=== PATIENT | female | born 1980 | race Hispanic/Latino ===

== ENCOUNTER 2017-05-22 20:19 | Emergency (ER) | payer SELFPAY ==
[~2017-05-22 20:19] MED LIST: ISOVUE-370 76%-LOCM 1 ML ONE
[2017-05-22 20:40] LABS: #Eosinphils 0.2 thou/uL (0.0-0.7); #Lymphocytes 4.1 thou/uL (1.20-3.40); #Monocytes 0.5 thou/uL (0.11-0.59); #Neutrophils 6.4 thou/uL (1.40-6.50); %Basophils 0.4 % (0.0-1.0); %Eosinophils 1.9 % (0.0-10.0); %Lymphocytes 36.2 % (21.0-51.0); %Monocytes 4.8 % (0.0-10.0); Hematocrit 41.3 % (36.0-47.0); Mean Platelet Volume 9.7 fL (7.4-10.4); Red Blood Cell (RBC) Count 5.37 mill/uL (4.20-5.40); White Blood Cell (WBC) Count 11.2 thou/uL (4.8-10.8)
[2017-05-22 21:08] LABS: ALT (SGPT) 30 U/L (8-55); AST (SGOT) 14 U/L (5-34); Alkaline Phosphatase 100 U/L (40-150); Anion Gap 12 mmol/L (10-20); BUN (Urea Nitrogen) 6 mg/dL (7.0-18.7); Bilirubin, Total 0.4 mg/dL (0.2-1.2); Calc. Creatinine Clearance 0 mL/min (70-130); Calcium 9.3 mg/dL (7.8-10.44); Carbon Dioxide 26 mmol/L (22-29); Chloride 100 mmol/L (98-107); Estimated GFR-MDRD 82; Globulin 4.6 g/dL (2.4-3.5); Lipase 12 U/L (8-78); Protein, Total 8.6 g/dL (6.0-8.3)
[2017-05-22] MEDS ORDERED: Ketorolac Tromethamine 30 MG/ML VIAL ONE (21:16)
[2017-05-22] MEDS ORDERED: Lidocaine Viscous Sol 2% 15 ml UD Cup ONE (21:16)
[2017-05-22] MEDS ORDERED: Mag-Al 1200 mg/1200 mg/30 ML UDCUP ONE (21:16)
[2017-05-22 21:40] LABS: Troponin I Less than 0.010 ng/mL (< 0.028)
--- NOTE | 2017-05-22 21:46 | RAD ---
PA AND LATERAL VIEWS OF THE CHEST: 05/22/17 HISTORY: Chest pain. FINDINGS: Comparison made with exam of 11/10/16. The heart size is normal. There is mild stable elevation of the right hemidiaphragm. No focal areas of consolidation, pneumothorax or pleural effusions are seen. IMPRESSION: Stable exam. No acute process. POS: [facility]
[2017-05-22 22:46] LABS: Bilirubin Negative (Negative); Blood, Urine Negative (Negative); Glucose, Urine (Dipstick) 500 mg/dL (Negative); Ketone, Urine Negative (Negative); Nitrite Positive (Negative); Protein, Urine (Dipstick) Negative (Neg-Trace); Urobilinogen 0.2 mg/dL (0.2-1.0)
[2017-05-22 22:49] LABS: Bacteria/HPF 4+ HPF (None Seen); Hyaline Casts/LPF 0-3 HYALINE CAST LPF (0-3 Hyaline); Squamous Epithelial None Seen HPF (0-3); WBC/HPF 21-50 HPF (0-3)
--- NOTE | 2017-05-23 00:36 | CT ---
CT PULMONARY ANGIOGRAM WITH IV CONTRAST AND 3D POSTPROCESSIN05/22/17 HISTORY: Chest pain. FINDINGS: No filling defects are seen in the contrast opacified pulmonary arterial vasculature. The thoracic a jesusita is well opacified without aneurysmal dissection. No pleural or pericardial effusions are identi fied. No pneumothoraces, focal areas of consolidation, or lung bases are seen. The large right adren al fat containing mass likely a myelolipoma noted on the CT scan of 03/30/15 is incompletely visualiz ed on the current study. IMPRESSION: No CT evidence of pulmonary embolism or thoracic aortic aneurysm/dissection. POS: [facility]
== END 2017-05-23 00:46 | disposition home or self-care (01) ==
LOC: ERS 20:19
DX: N39.0 Urinary tract infection, site not specified (principal); R10.13 Epigastric pain; E11.9 Type 2 diabetes mellitus without complications; I10 Essential (primary) hypertension; F32.9 Major depressive disorder, single episode, unspecified
CPT/HCPCS: 36415; 71020; 71275; 80053; 81003; 81015; 81025; 82553; 83690; 84484; 85025; 85379; 96374; J1885

== ENCOUNTER 2018-02-21 02:04 | Emergency (ER) | payer BC ==
[2018-02-21 02:36] LABS: #Basophils 0.1 thou/uL (0.0-0.2); #Eosinphils 0.3 thou/uL (0.0-0.7); #Monocytes 0.5 thou/uL (0.11-0.59); #Neutrophils 5.2 thou/uL (1.40-6.50); %Basophils 1.2 % (0.0-1.0); %Eosinophils 3.2 % (0.0-10.0); %Lymphocytes 33.5 % (21.0-51.0); %Monocytes 5.1 % (0.0-10.0); Hemoglobin 13.3 g/dL (12.0-16.0); Mean Corpuscular HGB CONC 31.5 g/dL (32.0-36.0); Mean Corpuscular Hemoglobin 24.1 pg (27.0-31.0); Mean Corpuscular Volume 76.4 fL (78.0-98.0); Mean Platelet Volume 10.2 fL (7.4-10.4); Platelet Count 264 thou/uL (130-400); RBC Distribution Width 16.6 % (11.5-14.5); Red Blood Cell (RBC) Count 5.51 mill/uL (4.20-5.40); White Blood Cell (WBC) Count 9.1 thou/uL (4.8-10.8)
[2018-02-21 02:58] LABS: ALT (SGPT) 15 U/L (8-55); AST (SGOT) 13 U/L (5-34); Alkaline Phosphatase 83 U/L (40-150); Anion Gap 13 mmol/L (10-20); BUN (Urea Nitrogen) 6 mg/dL (7.0-18.7); Bilirubin, Total 0.4 mg/dL (0.2-1.2); Calc. Creatinine Clearance 0 mL/min (70-130); Calcium 9.3 mg/dL (7.8-10.44); Carbon Dioxide 26 mmol/L (22-29); Chloride 104 mmol/L (98-107); Estimated GFR-MDRD 88; Globulin 3.8 g/dL (2.4-3.5); Glucose 136 mg/dL (70-105); Potassium 4.1 mmol/L (3.5-5.1); Protein, Total 7.8 g/dL (6.0-8.3); Sodium 139 mmol/L (136-145)
[2018-02-21 04:59] LABS: Bilirubin Negative (Negative); Blood, Urine Negative (Negative); Clarity CLOUDY (Clear); Glucose, Urine (Dipstick) Negative (Negative); Leukocyte Large (Negative); Nitrite Positive (Negative); Protein, Urine (Dipstick) Negative (Neg-Trace); Specific Gravity, Urine 1.005 (1.002-1.036); Urobilinogen 0.2 mg/dL (0.2-1.0); pH, Urine 6.5 (5.0-9.0)
[2018-02-21 05:01] LABS: Pathc Cast-AUWi Flag 0.43 (0-2.49)
[2018-02-21 05:08] LABS: Pregnancy Test - Urine (BHCG) Negative (Negative); Pregu Control Background? CLEAR/WHITE (CLR/WHITE); Pregu Control Bar Appear? YES (CONTROL BAR); Specific Gravity 1.005 (1.002-1.036)
[2018-02-21 05:26] LABS: RBC/HPF 0-3 HPF (0-3)
[2018-02-21 05:27] LABS: Renal Epithelial 0-3 HPF (0-3); Squamous Epithelial 0-3 HPF (0-3); Transitional Epithelial 0-3 HPF (0-3)
[2018-02-21 05:28] LABS: Bacteria/HPF 4+ HPF (None Seen); Hyaline Casts/LPF NONE SEEN LPF (0-3 Hyaline); Oval Fat Bodies/HPF None Seen HPF (None Seen); Trichomonas/HPF 1+ HPF (None Seen); Yeast-All Forms None Seen HPF (None Seen)
[2018-02-21] MEDS ORDERED: Ketorolac Tromethamine 30 MG/ML VIAL ONE (06:01)
--- NOTE | 2018-02-21 11:03 | CT ---
PRELIMINARY REPORT/[facility]/EMERGENTY AFTER-HOURS PROCEDURE Addendum created by Adonis Rojas MD on 02/21/2018 7:50 AM Central Time ([place]) Findings were dis cussed with PAULINE RICHARDSON at 02/21/2018 7:49 AM CDT. Initial Report created on 02/21/2018 7:37 AM Central Time ([place] & [place]) CT Abdomen and Pelvis Without Intravenous Contrast EXAM DATE/TIME: Exam ordered 02/21/2018 6:12 AM CLINICAL HISTORY: 37 years old, female; Pain; Abdominal pain; Flank; Other: Bilateral upper flank pain; Patient HX: [email or web address] presents to the ed w C/O bilateral flank pain onset of 1 week ago. Pt. Reports that she had a cyst o n her right kidney in 2014 after having been suspected of kidney stones. Mass found between r kidney and liver-2014(no follow up). Pt. Was seen by dr. Hansen and was given hydrocodone and muscle relaxe rs for the pain. Pt. Reports that neither have helped. Pt. Denies any falls or traumas. TECHNIQUE: Axial computed tomography images of the abdomen and pelvis without intravenous contrast. Coronal reformatted images were created and reviewed. COMPARISON: CT Abdomen Pelvis W WO con 2015-03-30 09:09 FINDINGS: Lung bases: The visualized portions of the lung bases are normal. ABDOMEN: Liver: There are no focal liver lesions identified. Gallbladder and bile ducts: The gallbladder is normal. There is no evidence of biliary ductal dilatio n. No calcified stones. Pancreas: The pancreas appears normal. No ductal dilation. Spleen: The spleen is normal. Adrenals: Normal. No mass. Kidneys and ureters: There is a 10 x 13 x 12 cm fat and soft tissue density mass extending from the u pper pole of the RIGHT kidney consistent with an angiomyolipoma, increased in size from prior. The le ft kidney is normal. No obstructing stones. No hydronephrosis. Stomach and bowel: The stomach is normal. The colon is normal. No obstruction. No mucosal thickening. PELVIS: Appendix: A normal appendix is identified. Bladder: The bladder is normal. No stones. Reproductive: The uterus is normal. ABDOMEN and PELVIS: Intraperitoneal space: Normal. No free air. No significant fluid collection. Bones/joints: No acute fracture. No dislocation. Soft tissues: Normal. Vasculature: Normal. No abdominal aortic aneurysm. Lymph nodes: Normal. No enlarged lymph nodes. 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 Thank you for allowing us to participate in the care of your patient. Dictated and Authenticated by: Adonis Rojas MD 02/21/2018 7:37 AM Central Time ([place]) FINAL REPORT CT ABDOMEN AND PELVIS WITHOUT CONTRAST STONE PROTOCOL: Date: 02/21/18 HISTORY: Right-sided flank pain. COMPARISON: CT from 2014. FINDINGS/IMPRESSION: Findings and impression are concordant with the preliminary report by Gloria. There is mild interval size increase of the right adrenal myelolipoma. No evidence of acute hemorrhag e. Given the size of the myelolipoma, surgical consultation is advised. POS: [facility]
== END 2018-02-21 08:21 | disposition home or self-care (01) ==
LOC: ERS 02:04
DX: D17.71 Benign lipomatous neoplasm of kidney (principal); N39.0 Urinary tract infection, site not specified; I10 Essential (primary) hypertension; E11.9 Type 2 diabetes mellitus without complications; F32.9 Major depressive disorder, single episode, unspecified
CPT/HCPCS: 36415; 74176; 80053; 81003; 81015; 81025; 83690; 85025; 87040; 87077; 87086; 87186; 96361; 96365; 96375; J0744; J1885

== ENCOUNTER 2018-03-03 16:07 | Emergency (ER) | payer BC ==
[2018-03-03 16:47] LABS: #Eosinphils 0.1 thou/uL (0.0-0.7); #Lymphocytes 2.4 thou/uL (1.20-3.40); #Monocytes 0.5 thou/uL (0.11-0.59); #Neutrophils 7.3 thou/uL (1.40-6.50); %Basophils 0.2 % (0.0-1.0); %Eosinophils 1.4 % (0.0-10.0); %Lymphocytes 23.1 % (21.0-51.0); %Monocytes 5.1 % (0.0-10.0); %Neutrophils 70.3 % (42.0-75.0); Hemoglobin 13.5 g/dL (12.0-16.0); Mean Corpuscular HGB CONC 33.4 g/dL (32.0-36.0); Mean Corpuscular Hemoglobin 25.1 pg (27.0-31.0); Mean Corpuscular Volume 75.2 fL (78.0-98.0); Mean Platelet Volume 9.8 fL (7.4-10.4); Platelet Count 254 thou/uL (130-400); RBC Distribution Width 16.7 % (11.5-14.5); Red Blood Cell (RBC) Count 5.38 mill/uL (4.20-5.40); White Blood Cell (WBC) Count 10.4 thou/uL (4.8-10.8)
[2018-03-03 17:13] LABS: ALT (SGPT) 20 U/L (8-55); AST (SGOT) 49 U/L (5-34); Albumin 4.1 g/dL (3.5-5.0); Alkaline Phosphatase 107 U/L (40-150); Anion Gap 14 mmol/L (10-20); BUN (Urea Nitrogen) 11 mg/dL (7.0-18.7); Bilirubin, Total 0.5 mg/dL (0.2-1.2); Calc. Creatinine Clearance 0 mL/min (70-130); Carbon Dioxide 25 mmol/L (22-29); Chloride 103 mmol/L (98-107); Estimated GFR-MDRD 80; Glucose 181 mg/dL (70-105); Lipase 22 U/L (8-78); Potassium 3.6 mmol/L (3.5-5.1); Protein, Total 8.1 g/dL (6.0-8.3); Sodium 138 mmol/L (136-145)
[2018-03-03 17:45] LABS: CKMB 0.6 ng/mL (0-6.6); Troponin I Less than 0.010 ng/mL (< 0.028)
--- NOTE | 2018-03-03 18:07 | RAD ---
PORTABLE CHEST 1 VIEW: Date: 03/03/18 Time: 1702 hours HISTORY: Chest pain. FINDINGS: Comparison made with exam of 05/22/17. The heart size is normal. There is continued elevation of the right hemidiaphragm. No lobar consolida tion, pneumothoraces, or pleural effusions are seen. The lungs are well expanded. IMPRESSION: No acute process. POS: [facility]
--- NOTE | 2018-03-03 19:46 | ULT ---
RIGHT UPPER QUADRANT ULTRASOUND: HISTORY: Abdominal pain. FINDINGS: The liver demonstrates fairly homogeneous echotexture without focal mass or intrahepatic ductal dilat ation. No gallstones, gallbladder wall thickening, or pericholecystic fluid is seen. The common shyanne t measures 4 mm in diameter. The pancreas is not satisfactorily visualized. No free fluid is seen. No right-sided hydronephrosis is noted. The right adrenal myelolipoma is better visualized and veronique acterized on the CT scan of 02/21/2018. IMPRESSION: No evidence of cholelithiasis. POS: [facility]
== END 2018-03-03 19:17 | disposition home or self-care (01) ==
LOC: ERS 16:07
DX: R10.13 Epigastric pain (principal); E11.9 Type 2 diabetes mellitus without complications; I10 Essential (primary) hypertension; Z79.4 Long term (current) use of insulin
CPT/HCPCS: 71045; 76705; 80053; 82550; 82553; 83690; 83880; 84484; 85025; 93005

== ENCOUNTER 2018-03-06 11:23 | Outpatient (CLI) | payer BC ==
[2018-03-06] MEDS ORDERED: ISOVUE-370 76%-LOCM 1 ML ONE (11:28)
== END 2018-03-06 11:24 | disposition home or self-care (01) ==
LOC: BICCT 11:23
PROVIDERS: ATTEND Urology
DX: D35.00 Benign neoplasm of unspecified adrenal gland (principal)
CPT/HCPCS: 74175

== ENCOUNTER 2018-04-14 13:00 | Inpatient (IN) | payer BC ==
[2018-04-14 13:38] VITALS: BMI 44.9
[2018-04-22] MEDS ORDERED: CEFAZOLIN/Water 2 GM/20 ML SYRINGE ONE (06:48)
[2018-04-22] MEDS ORDERED: Midazolam HCl 2 mg/2 ml Vial ONE (06:51)
[2018-04-22] MEDS ORDERED: Fentanyl 100 MCG/2 ML VIAL ONE ×4 (07:08→12:13)
[2018-04-22] MEDS ORDERED: Fentanyl 250 MCG/5 ML VIAL ONE ×2 (07:25→09:24)
[2018-04-22] MEDS ORDERED: Bupivacaine 0.25% HCL 30 ML VIAL ONE ×2 (09:24→11:24)
[2018-04-22] MEDS ORDERED: Bupivacaine 0.25% 10 ML VIAL EPIDURAL PRN (10:00)
[2018-04-22] MEDS ORDERED: Promethazine HCl 25 MG SUPP PR PRN (10:00)
[2018-04-22] MEDS ORDERED: Naloxone HCl 0.4 mg/ml Vial IVP PRN (10:00)
[2018-04-22] MEDS ORDERED: diphenhydrAMINE 50 MG/ML VIAL IM PRN (10:00)
[2018-04-22] MEDS ORDERED: diphenhydrAMINE 50 MG/ML VIAL IVP PRN (10:00)
[2018-04-22] MEDS ORDERED: Ondansetron HCl/PF 4 MG/2 ML Vial IVP PRN ×3 (10:00→13:58)
[2018-04-22] MEDS ORDERED: HYDROcodone/Acetaminophen 5/325 mg Tablet PO PRN ×2 (10:00)
[2018-04-22] MEDS ORDERED: diphenhydrAMINE 25 MG CAP PO PRN ×3 (10:00→13:58)
[2018-04-22] MEDS ORDERED: traMADol HCl 50 MG TAB PO PRN ×2 (10:00)
[2018-04-22] MEDS ORDERED: Hydrocerin (Eucerin) Cream 120 gm Jar TOP PRN (10:00)
[2018-04-22] MEDS ORDERED: Naloxone HCl 0.4 mg/ml Vial IV PRN ×2 (10:00→13:58)
[2018-04-22] MEDS ORDERED: Zolpidem Tartrate 5 MG TAB PO PRN ×3 (10:00→13:58)
[2018-04-22] MEDS ORDERED: fentaNYL Citrate/PF 1,250 MCG, Bupivacaine 25 ML in Sodium Chloride 0.9% 250 ML 200 ML EPIDURAL SCH (10:00)
[2018-04-22] MEDS ORDERED: Promethazine HCl 25 MG/ML VIAL IM PRN ×3 (10:00→13:58)
[2018-04-22] MEDS ORDERED: Promethazine HCl 12.5 MG SUPP PR PRN (10:58)
[2018-04-22] MEDS ORDERED: Docusate 100 MG CAP PO PRN (10:58)
[2018-04-22] MEDS ORDERED: Metoclopramide HCl 10 MG/2 ML VIAL IVP PRN (11:03)
[2018-04-22] MEDS ORDERED: Dextrose 50% Abboject 50 ML SYRINGE SLOW IVP PRN ×2 (11:05→11:28)
[2018-04-22] MEDS ORDERED: Dextrose 5% in Water 1,000 ML IV PRN (11:05)
[2018-04-22] MEDS ORDERED: Insulin Regular 300 UNITS/3 ML VIAL SC PRN (11:05)
[2018-04-22 12:41] LABS: Potassium 4.1 mmol/L (3.5-5.1)
--- NOTE | 2018-04-22 13:27 | OP ---
DATE OF PROCEDURE: 04/22/2018 PREOPERATIVE DIAGNOSIS: Right adrenal mass. POSTOPERATIVE DIAGNOSIS: Right adrenal mass. PROCEDURE: Right adrenalectomy. SURGEON: Shell Faulkner MD INSPECTOR [employer] BOARDS: Maci Tucker D.O. ANESTHESIA: General with endotracheal tube and epidural. COMPLICATIONS: None. BLOOD LOSS: 550. CRYSTALLOID: 1200. URINE OUTPUT: 250. SPECIMENS: Right adrenal mass. DRAINS REMAINING: Borrego. INDICATIONS: The patient is a 37-year-old female, who was seen in the office for a 13 cm adrenal mass that had been noted on imaging 3 years prior; however, she had not been referred to Urology until being seen in the ER for some generalized pain, and a CT scan noticed the adrenal tumor is now enlarged and was referred to me. Since this has been such longstanding that her hypertension was relatively new with no concerns for hypokalemia. I was not concerned for aldosterone nor a pheochromocytoma that could have been a component of a cortisol functioning. So, this was sent off, but clearly the mass needed to be removed either way, and so we planned for this. Embolization was discussed with the cardiovascular surgeon, but he felt it was not amenable to this, as there was no definitive blood supply noted after CT angiogram for this, so we proceeded. The patient was brought into the room by Anesthesia, laid on the table in supine position. After receiving general anesthetic, she was positioned with pads and all pressure points and the bed was flexed slightly for better exposure , and then she was secured. A Borrego catheter had been placed. An art line was attempted by Anesthesia, but ultimately unsuccessful, so she had 2 regular IVs and then she was prepped and draped in sterile fashion. A Chevron incision carrying it far on the right and only approximately 4-5 cm across midline was then made and taken down to the fascia. The fascia was opened and the rectus muscle transected on the right completely and only a portion on the patient's left. Then, the exterior oblique and internal oblique muscle and fascia were incised and then peritoneum was recognized and opened. Of note, the falciform ligament had been taken with the LigaSure to ensure hemostasis. Then, carefully, the incision was taken all the way to its lateral borders with electrocautery. The Bookwalter was set up for retraction. Attention was turned to the colon where it was released laterally at the line of Toldt and brought over medially. Any hepatic attachments were also released and so then the colon and a portion of the liver were packed away. Attention was then turned to the duodenum where this was kocherized. Care was taken near the IVC when doing this dissection with cautery. The IVC and renal vein were then identified and the renal vein was heading down toward the renal hilum. The superior portion of the kidney and that border between the tumor was identified and carefully dissected. The majority of the resection occurred using right angle and electrocautery other than blunt dissection. A plane was carefully taken down to separate the superior kidney from the adrenal gland going more medially ensuring there were no attachments to the renal vein from a blood supply standpoint, then returning to the IVC. This was dissected carefully away from the tumor itself until a portion that appeared to be the definitive adrenal vein from the IVC was identified. This was cleared off and dissected such that the right angle could go under it, and a 2-0 silk was placed on the IVC side and another was placed on the tumor side; however, there was not enough length of the vein in order to tie the tumor side. So, the IVC side was tied down and then another clip was used on this side before transecting the tumor away from the IVC. There was some bleeding noted from the tumor site at this point, so a 4-0 Prolene was used in [id number] fashion, which successfully achieved hemostasis. Then, attention was turned to the lateral portion of the tumor where it was freed from the abdominal wall, and posteriorly going up towards the liver where we wanted to keep the peritoneum reflected upward onto the liver. This plane was followed and any attachments were then taken down with the right angle and electrocautery. As we got more medial there was one area that was taken down with the LigaSure to ensure hemostasis, but there was never any further definitive vein or artery encountered on the tumor itself. At this point, blunt dissection of the lateral and posterior portion was performed and any attachments remaining were taken away with electrocautery. Attention was turned back to the area of the IVC where the adrenal vein had been and there were still some attachments in this area. With the right angle and electrocautery these planes were further delineated. They were only a few smaller attachments in the superior-posterior area that were taken down with the cautery carefully. At this point, the tumor was free and delivered for specimen. Once the tumor was out, the surgery bed was irrigated with copious amounts of fluid and then inspected for hemostasis. FloSeal was placed on the adrenal vein stump at the IVC and then SurgiSeal was placed at the bed of resection superiorly. This was just for further reassurance since there was no oozing noted. Attention was turned back to the area of the renal vein and its attachment from the IVC, and there was no concern for any oozing there either. So, at this point, the colon was pushed back over into its anatomic position and the Bookwalter and retractors were all removed. Counts were correct for laps and needles. The posterior layer of the external/internal fascia was then closed with #1 PDS in running fashion. Then the anterior faschia of the rectus muscle belly itself was closed with a second #1 PDS in running fashion. The skin was inspected for hemostasis. Then powder was placed in the wound to prevent seroma and hopefully infection. The dermis was reapproximated with 3-0 Vicryl in interrupted fashion and anila were used for the skin. Sterile dressing was applied and the patient was then awakened and transferred to PACU in stable condition. JOSÉ
[2018-04-22] MEDS ORDERED: diphenhydrAMINE 50 MG/ML VIAL IM/IV PRN (13:58)
[2018-04-22] MEDS ORDERED: Metoclopramide HCl 10 MG/2 ML VIAL ONE (14:18)
[2018-04-22] MEDS ORDERED: Glycopyrrolate 0.2 MG/ML 5 ML SYRINGE ONE (14:18)
[2018-04-22] MEDS ORDERED: Ondansetron HCl/PF 4 MG/2 ML Vial ONE (14:18)
[2018-04-22] MEDS ORDERED: PROPOFOL 200 MG/20 ML VIAL ONE (14:18)
[2018-04-22 15:29] LABS: Hemoglobin 10.8 g/dL (12.0-16.0)
[2018-04-22 15:42] LABS: Potassium 4.2 mmol/L (3.5-5.1)
[2018-04-22] MEDS: Heparin 5,000 UNITS/ML VIAL SC SCH ×2 (16:27→22:25)
[2018-04-22] MEDS: Sodium Chloride 0.9% 1,000 ML IV SCH ×2 (16:33→22:07)
[2018-04-22] MEDS: CEFAZOLIN 2 GM in Sodium Chloride 0.9% 100 ML IVPB SCH (16:33)
[2018-04-22] MEDS: Acetaminophen 500 MG TAB PO SCH (18:03)
--- NOTE | 2018-04-22 18:23 | PRG ---
DATE OF SERVICE: 04/22/2018 SUBJECTIVE: The patient has done well other than pain control in the PACU area. Her epidural was not working, so it was switched out to another and the other seems to be working only on the left side as opposed to the right, so anesthesia has set her up with an epidural and [employer]. When I saw her, she is actually asleep--but easily aroused and denies anything other than pain. No nausea, but the pain is better than previous. PHYSICAL EXAMINATION: VITAL SIGNS: Her vitals have been stable. Her heart rate is around 100 with a blood pressure of systolic in the 120s. She is satting 100% on nasal cannula oxygen and her urine output has been approximately 200 yellow urine. HEART: Regular rhythm, borderline tachycardia. LUNGS: Clear to auscultation bilaterally. ABDOMEN: Soft, appropriately tender with dressing clean, dry and intact. LABORATORY DATA: H&H is 10.8 and 33.0, potassium is 4.2. ASSESSMENT AND PLAN: We have a 37-year-old female status post right adrenalectomy for 13 cm tumor with postop pain being handled by Anesthesia, but otherwise, doing well. [facility]ITAL[facility]ul[facility]
[2018-04-22] MEDS: Famotidine/PF 20 mg/2ml Vial SLOW IVP SCH (20:28)
[2018-04-23] MEDS: CEFAZOLIN 2 GM in Sodium Chloride 0.9% 100 ML IVPB SCH (00:38)
[2018-04-23] MEDS: Acetaminophen 500 MG TAB PO SCH ×4 (00:39→17:20)
[2018-04-23] MEDS: Sodium Chloride 0.9% 1,000 ML IV SCH ×4 (00:45→17:29)
[2018-04-23] MEDS: Bupivacaine 10 ML in Sodium Chloride 0.9% 90 ML EPIDURAL SCH ×2 (03:35→17:22)
[2018-04-23] MEDS: fentaNYL Citrate/PF 2,000 MCG in Sodium Chloride 0.9% 60 ML IV PRN ×2 (03:36→17:22)
[2018-04-23 04:51] LABS: #Monocytes 1.1 thou/uL (0.11-0.59); #Neutrophils 12.5 thou/uL (1.40-6.50); %Basophils 0.1 % (0.0-1.0); %Eosinophils 0.2 % (0.0-10.0); %Lymphocytes 12.9 % (21.0-51.0); %Monocytes 6.7 % (0.0-10.0); %Neutrophils 80.1 % (42.0-75.0); Hemoglobin 10.6 g/dL (12.0-16.0); Mean Corpuscular HGB CONC 31.6 g/dL (32.0-36.0); Mean Corpuscular Hemoglobin 24.6 pg (27.0-31.0); Mean Platelet Volume 9.5 fL (7.4-10.4); Platelet Count 265 thou/uL (130-400); RBC Distribution Width 14.1 % (11.5-14.5); Red Blood Cell (RBC) Count 4.28 mill/uL (4.20-5.40); White Blood Cell (WBC) Count 15.6 thou/uL (4.8-10.8)
[2018-04-23 05:01] LABS: Anion Gap 10 mmol/L (10-20); BUN (Urea Nitrogen) 7 mg/dL (7.0-18.7); Calc. Creatinine Clearance 209 mL/min (70-130); Calcium 7.8 mg/dL (7.8-10.44); Carbon Dioxide 21 mmol/L (22-29); Chloride 106 mmol/L (98-107); Estimated GFR-MDRD Greater than 90; Glucose 160 mg/dL (70-105); Potassium 4.2 mmol/L (3.5-5.1); Sodium 133 mmol/L (136-145)
[2018-04-23] MEDS: Heparin 5,000 UNITS/ML VIAL SC SCH ×3 (05:46→21:49)
--- NOTE | 2018-04-23 08:59 | PRG ---
DATE OF SERVICE: 04/23/2018 SUBJECTIVE: The patient did well overnight, actually slept some. Her pain is controlled. She has m inimal burping, some nausea this morning, but has not asked for nausea medication yet. We reviewed h ow she has this if she needs it. She has not gotten out of bed yet. OBJECTIVE: VITAL SIGNS: Her heart rate has been in the 90s-100s, she has been afebrile, blood pressure is stabl e currently 110/76, satting 94% on room air up to 98% previously. Her urine output has been 1150. HEART: Regular rhythm with borderline tachycardia. LUNGS: Clear to auscultation bilaterally. ABDOMEN: Soft, appropriately tender. Dressing was clean, dry and intact. Hypoactive bowel sounds n oted. EXTREMITIES: No lower extremity edema. LABORATORY DATA: Reveal H&H of 10.6 and 33.4, which is stable from 10.8 and 33.0. Her chemistries r eveal a slightly low sodium, but otherwise creatinine was 0.65 and her sugars have been from 119-160. ASSESSMENT AND PLAN: We have a 37-year-old female postoperative day #1 from a right adrenalectomy fo r a 13 cm mass, doing well. We will get the Borrego out and have her ambulate, increase her incentive spirometry. Continue just sips with meds only and monitor.
[2018-04-23] MEDS: Famotidine/PF 20 mg/2ml Vial SLOW IVP SCH ×2 (09:18→21:49)
[2018-04-23] MEDS ORDERED: CEFAZOLIN/Water 2 GM/20 ML SYRINGE SLOW IVP SCH (16:00)
[2018-04-24] MEDS: Acetaminophen 500 MG TAB PO SCH ×4 (00:07→17:59)
[2018-04-24] MEDS: Sodium Chloride 0.9% 1,000 ML IV SCH ×3 (02:06→18:03)
[2018-04-24] MEDS: Bupivacaine 10 ML in Sodium Chloride 0.9% 90 ML EPIDURAL SCH ×2 (06:00→18:43)
[2018-04-24] MEDS: Heparin 5,000 UNITS/ML VIAL SC SCH ×3 (07:18→21:05)
[2018-04-24] MEDS: Famotidine/PF 20 mg/2ml Vial SLOW IVP SCH ×2 (08:06→21:06)
--- NOTE | 2018-04-24 09:06 | PRG ---
DATE OF SERVICE: 04/24/2018 SUBJECTIVE: The patient did well over the last 24 hours after she is ambulating in small amounts and lying down more than up and has required oxygen from a low standpoint, she does not complain of any shortness of breath or coughing. Her nausea is improved. She has not passed gas. She has less burp ing. PHYSICAL EXAMINATION: VITAL SIGNS: She has been afebrile with a T-max of 98.9, her heart rate stayed around 100, blood pre ssure 129/86, satting 96% on 2 liters nasal cannula with 1875 out over the last 24 hours and she is v oiding this. HEART: Regular rhythm, borderline tachycardia. LUNGS: Clear to auscultation bilaterally. ABDOMEN: Soft, appropriately tender with hypoactive bowel sounds. The dressing was removed and the anila are clean, dry, and intact on the wound/ On incentive spirometer she could get up to 1500. LABORATORY DATA: No new labs. ASSESSMENT AND PLAN: We have a 37-year-old female postoperative day #2 from a right adrenalectomy do ing well except needing pulmonary toilet. I will get physical therapy to help with her ambulation. Continue n.p.o. except meds for now and await bowel function return.
[2018-04-24] MEDS: fentaNYL Citrate/PF 2,000 MCG in Sodium Chloride 0.9% 60 ML IV PRN (09:44)
[2018-04-25] MEDS: Acetaminophen 500 MG TAB PO SCH ×2 (00:04→05:58)
[2018-04-25] MEDS: Sodium Chloride 0.9% 1,000 ML IV SCH (02:44)
[2018-04-25] MEDS: Heparin 5,000 UNITS/ML VIAL SC SCH ×2 (05:58→14:07)
[2018-04-25] MEDS: Famotidine/PF 20 mg/2ml Vial SLOW IVP SCH (08:21)
[2018-04-25] MEDS: Bupivacaine 10 ML in Sodium Chloride 0.9% 90 ML EPIDURAL SCH (08:21)
[2018-04-25] MEDS ORDERED: Losartan 25 MG TAB PO SCH ×2 (09:00→09:45)
[2018-04-25] MEDS: fentaNYL Citrate/PF 2,000 MCG in Sodium Chloride 0.9% 60 ML IV PRN (09:30)
[2018-04-25] MEDS ORDERED: Morphine 4 MG/ML Carpuject SLOW IVP PRN (09:40)
[2018-04-25] MEDS ORDERED: Acetaminophen/Codeine 30-300mg Tablet PO PRN (09:41)
[2018-04-25] MEDS ORDERED: D5 1/2 NS w/10 mEq KCl 1,000 ML/1,000 ML BAG IV SCH (09:45)
--- NOTE | 2018-04-25 10:12 | PRG ---
DATE OF SERVICE: 04/25/2018 SUBJECTIVE: The patient did well overnight. Her pain is much improved. She walks better. She lear loraine how to get out of the bed from physical therapy without too much discomfort. Her breathing is im proved. She is feeling more rumbling in her abdomen, but has not passed any gas. She still has some burping and she has been urinating okay. OBJECTIVE: VITAL SIGNS: T-max 98.8, heart rate in the 90s-100s. Blood pressure is starting to elevate 152/99, satting 95% on room air, although she has nasal cannula on currently, so I am not sure whether this w as with 2 liters nasal cannula or not, despite it being listed as room air. She has had 2100, output for the last 24 hours. LUNGS: Clear to auscultation bilaterally. ABDOMEN: Soft, nondistended, appropriately tender at the incision with increasing bowel sounds abner red to the day prior. She was able to do a little over 1500 on the incentive spirometer. ASSESSMENT AND PLAN: We reviewed the anticipation of switching over from the epidural to oral medica tions and once she has passed gas then can have a clear liquid diet and advance as tolerated. If thi s happens today than there is a chance that she will be able to be discharged home. Otherwise, hopef ully in the next 24-48 hours, we will be able to progress once her bowel function returns.
[2018-04-25] MEDS: Acetaminophen/Codeine 30-300mg Tablet PO PRN ×2 (12:50→16:33)
[2018-04-25 15:40] VITALS: BP 144/88; TEMP 97.8
--- NOTE | 2018-04-28 11:30 | DIS ---
DATE OF ADMISSION: 04/22/2018 DATE OF DISCHARGE: 04/25/2018 ADMISSION DIAGNOSIS: Right adrenal mass. DISCHARGE DIAGNOSIS: Right adrenal mass, status post resection of a right 13-cm myolipoma. HOSPITAL COURSE: The patient did well throughout her stay. Her pain was originally controlled with epidural and IV pain medicines. After her bowel function returned, she was tolerating liquids, ambul ating, and pain controlled with oral medications. Her anila were removed and she was sent home wit [facility]. She will follow up in the office to check a postoperative recovery.
== END 2018-04-25 16:38 | disposition home or self-care (01) | DRG 615 ==
LOC: SURG A 04-22 05:47
PROVIDERS: ADMIT Urology; ATTEND Urology
PROC: 0GB30ZZ Excision of Right Adrenal Gland, Open Approach (ICD-10-PCS; principal; 2018-04-22)
DX: D35.01 Benign neoplasm of right adrenal gland (principal)
CPT/HCPCS: 36415; 36416; 80048; 82533; 84132; 85014; 85018; 85025; 88307; A4216; G8978-GP-CK; G8979-GP-CK; G8980-GP-CK; J0690; J1642; J1644; J1815; J2250; J2270; J2405; J2704; J2765; J3010; J3490; J7050; S0020; S0028

== ENCOUNTER 2018-04-15 11:45 | Outpatient (CLI) | payer BC ==
[2018-04-15 13:07] LABS: Hemoglobin 12.1 g/dL (12.0-16.0); Mean Corpuscular Hemoglobin 25.5 pg (27.0-31.0); Mean Corpuscular Volume 77.2 fL (78.0-98.0); Mean Platelet Volume 10.1 fL (7.4-10.4); Platelet Count 318 thou/uL (130-400); RBC Distribution Width 14.5 % (11.5-14.5); Red Blood Cell (RBC) Count 4.75 mill/uL (4.20-5.40); White Blood Cell (WBC) Count 9.9 thou/uL (4.8-10.8)
[2018-04-15 13:27] LABS: PTT 30.6 SEC (22.9-36.1); Prothrombin Time 13.7 SEC (12.0-14.7)
[2018-04-15 13:29] LABS: Anion Gap 12 mmol/L (10-20); BUN (Urea Nitrogen) 7 mg/dL (7.0-18.7); Calc. Creatinine Clearance 0 mL/min (70-130); Carbon Dioxide 26 mmol/L (22-29); Chloride 105 mmol/L (98-107); Estimated GFR-MDRD Greater than 90; Glucose 92 mg/dL (70-105); Sodium 139 mmol/L (136-145)
[2018-04-15 14:08] LABS: BHCG - Serum Negative (NEGATIVE); Pregs Control Background? CLEAR/WHITE (CLR/WHITE); Pregs Control Bar Appear? YES (CONTROL BAR)
== END 2018-04-15 11:46 | disposition home or self-care (01) ==
LOC: LABBT 11:45
PROVIDERS: ATTEND Urology
DX: Z01.812 Encounter for preprocedural laboratory examination (principal); D35.00 Benign neoplasm of unspecified adrenal gland; N39.0 Urinary tract infection, site not specified; R10.13 Epigastric pain
CPT/HCPCS: 80048; 84703; 85027; 85610; 85730; 86850; 86900; 86901

== ENCOUNTER 2018-05-23 11:25 | Inpatient (IN) | payer BC ==
[2018-05-23 12:01] LABS: #Basophils 0.1 thou/uL (0.0-0.2); #Eosinphils 0.1 thou/uL (0.0-0.7); #Lymphocytes 1.3 thou/uL (1.20-3.40); #Monocytes 0.6 thou/uL (0.11-0.59); #Neutrophils 12.5 thou/uL (1.40-6.50); %Basophils 0.6 % (0.0-1.0); %Eosinophils 0.5 % (0.0-10.0); %Monocytes 3.8 % (0.0-10.0); %Neutrophils 86.1 % (42.0-75.0); White Blood Cell (WBC) Count 14.5 thou/uL (4.8-10.8)
[2018-05-23] MEDS ORDERED: Ondansetron PF 4 MG/2 ML Vial ONE ×2 (12:07→14:57)
[2018-05-23 12:21] LABS: ALT (SGPT) 194 U/L (8-55); AST (SGOT) 275 U/L (5-34); Albumin 4.2 g/dL (3.5-5.0); Alkaline Phosphatase 223 U/L (40-150); Anion Gap 12 mmol/L (10-20); BUN (Urea Nitrogen) 11 mg/dL (7.0-18.7); Bilirubin, Total 3.3 mg/dL (0.2-1.2); Calc. Creatinine Clearance 0 mL/min (70-130); Calcium 9.3 mg/dL (7.8-10.44); Carbon Dioxide 25 mmol/L (22-29); Chloride 102 mmol/L (98-107); Estimated GFR-MDRD 72; Globulin 4.5 g/dL (2.4-3.5); Glucose 305 mg/dL (70-105); Potassium 4.3 mmol/L (3.5-5.1); Protein, Total 8.7 g/dL (6.0-8.3); Sodium 135 mmol/L (136-145)
[2018-05-23 12:29] LABS: Hypochromia SLIGHT = 6-15 cells (100X) (0-5/hpf); MDiff Complete? YES; Mean Corpuscular HGB CONC 30.3 g/dL (32.0-36.0); Mean Corpuscular Hemoglobin 22.6 pg (27.0-31.0); Mean Corpuscular Volume 74.5 fL (78.0-98.0); Mean Platelet Volume 9.9 fL (7.4-10.4); Microcytosis SLIGHT = 6-15 cells (100X) (0-5/hpf); PLT Morphology Comment Appears Adequate; Platelet Count 354 thou/uL (130-400); Polychromasia SLIGHT = 2-3 cells (100X) (0-2/hpf); RBC Distribution Width 14.1 % (11.5-14.5); Red Blood Cell (RBC) Count 5.31 mill/uL (4.20-5.40)
[2018-05-23 12:39] LABS: Lipase 7054 U/L (8-78)
[2018-05-23] MEDS ORDERED: Pantoprazole 40 MG VIAL ONE (12:41)
--- NOTE | 2018-05-23 14:06 | ULT ---
SONOGRAM RIGHT UPPER QUADRANT: Date: 05/23/18 HISTORY: Upper abdomen pain. FINDINGS: Shadowing stones are apparent at the gallbladder neck. There is no gallbladder wall thickening or per icholecystic fluid. Common duct is 0.7 cm. Liver is unremarkable without focal mass or intrahepatic b iliary dilatation. No free fluid. IMPRESSION: Cholelithiasis. No evidence of acute biliary obstruction. POS: [facility]
[2018-05-23 14:57] LABS: BHCG - Serum Negative (NEGATIVE); Pregs Control Background? CLEAR/WHITE (CLR/WHITE); Pregs Control Bar Appear? YES (CONTROL BAR)
--- NOTE | 2018-05-23 15:39 | CT ---
CT ABDOMEN AND PELVIS WITH CONTRAST: Date: 05/23/18 HISTORY: Abdominal pain. Recent mass removal. COMPARISON: CT stone protocol dated 02/21/18. FINDINGS: Evidence of recent right adrenal myelolipoma removal. There is mild increased fluid in the anterior p ararenal space surrounding the pancreas, which is a little bit greater than would be expected for suzy kenny 1 month prior. There is mild hyperenhancement of the mucosa of the gallbladder. No free fluid within the intraperitoneal space. No hydronephrosis. Aortoiliac contour is normal. Liver is unremarkable. Mild S-shaped scoliosis. IMPRESSION: 1. Inflammatory stranding around the pancreas, which is greater than would be expected for surgery 1 month prior. This could be sequelae of pancreatitis. 2. Small seroma from a prior right adrenal myelolipoma removal. 3. Mild hyperenhancement of the mucosa of the gallbladder could be sequelae of cholangitis. There is also mild hyperenhancement of the mucosa of the common bile duct, further supporting cholangitis. POS: [facility]
[2018-05-23] MEDS ORDERED: Levofloxacin 500 mg/D5W 100 ml Premix Bag ONE (16:18)
[2018-05-23] MEDS ORDERED: Dextrose 5% in Water 1,000 ML IV PRN (17:07)
[2018-05-23] MEDS ORDERED: Ondansetron PF 4 MG/2 ML Vial IVP PRN (17:07)
[2018-05-23] MEDS ORDERED: Dextrose 50% Abboject 50 ML SYRINGE SLOW IVP PRN (17:07)
[2018-05-23] MEDS ORDERED: hydrALAZINE 20 MG/ML VIAL SLOW IVP PRN (17:07)
[2018-05-23] MEDS ORDERED: Ondansetron ODT 4 MG TAB PO PRN (17:07)
[2018-05-23] MEDS ORDERED: HumaLOG 300 UNITS/3 ML VIAL SC PRN (17:07)
[2018-05-23] MEDS ORDERED: Acetaminophen 1,000 MG in Premix Bag 1 BAG IVPB PRN (17:10)
[2018-05-23] MEDS ORDERED: Lactated Ringer's 1,000 ML IV SCH (17:15)
[2018-05-23] MEDS: Sodium Chloride 0.9% 1,000 ML IV SCH (18:42)
[2018-05-23] MEDS ORDERED: Morphine 4 MG/ML VIAL SLOW IVP PRN (18:45)
[2018-05-23] MEDS: Ketorolac Tromethamine 30 MG/ML VIAL IVP PRN (18:50)
[2018-05-23] MEDS: Enoxaparin Sodium 40 MG/0.4 ML SYRINGE SC SCH (20:43)
[2018-05-23] MEDS ORDERED: Promethazine HCl 25 MG in Sodium Chloride 0.9% 50 ML IVPB PRN (22:48)
[2018-05-23 23:24] VITALS: BMI 45.3
[2018-05-24] MEDS: Sodium Chloride 0.9% 1,000 ML IV SCH ×6 (00:01→17:46)
[2018-05-24 05:09] LABS: #Basophils 0.1 thou/uL (0.0-0.2); #Eosinphils 0.2 thou/uL (0.0-0.7); #Monocytes 0.5 thou/uL (0.11-0.59); #Neutrophils 6.5 thou/uL (1.40-6.50); %Basophils 1.1 % (0.0-1.0); %Eosinophils 2.5 % (0.0-10.0); %Lymphocytes 21.2 % (21.0-51.0); %Monocytes 5.5 % (0.0-10.0); %Neutrophils 69.7 % (42.0-75.0); Hemoglobin 9.1 g/dL (12.0-16.0); Mean Corpuscular HGB CONC 31.2 g/dL (32.0-36.0); Mean Corpuscular Hemoglobin 23.1 pg (27.0-31.0); Mean Corpuscular Volume 74.1 fL (78.0-98.0); Mean Platelet Volume 9.7 fL (7.4-10.4); Platelet Count 254 thou/uL (130-400); Red Blood Cell (RBC) Count 3.93 mill/uL (4.20-5.40); White Blood Cell (WBC) Count 9.4 thou/uL (4.8-10.8)
[2018-05-24 05:36] LABS: ALT (SGPT) 110 U/L (8-55); AST (SGOT) 67 U/L (5-34); Alkaline Phosphatase 155 U/L (40-150); Anion Gap 7 mmol/L (10-20); BUN (Urea Nitrogen) 9 mg/dL (7.0-18.7); Bilirubin, Total 0.8 mg/dL (0.2-1.2); Calc. Creatinine Clearance 196 mL/min (70-130); Carbon Dioxide 23 mmol/L (22-29); Chloride 109 mmol/L (98-107); Estimated GFR-MDRD Greater than 90; Globulin 3.2 g/dL (2.4-3.5); Glucose 127 mg/dL (70-105); Potassium 3.6 mmol/L (3.5-5.1); Protein, Total 6.2 g/dL (6.0-8.3); Sodium 135 mmol/L (136-145)
[2018-05-24] MEDS: Pantoprazole 40 MG VIAL IVP SCH (08:20)
--- NOTE | 2018-05-24 10:51 | PRG ---
DATE OF SERVICE: 05/24/2018 SUBJECTIVE: The patient reports feeling much better today, much less pain. No nausea or vomiting. PHYSICAL EXAMINATION: VITAL SIGNS: On exam, her temperature is 98.3, pulse 97, blood pressure 123/84. GENERAL: She looks good. ABDOMEN: Soft. She has got a fresh subcostal scar right side, really minimal tenderness. LABORATORY DATA: Her white count is 9.4, H and H is 9 and 29, platelet count is 254. Her bilirubin went from 3.3-0.8. LFTs are all coming down. ASSESSMENT: Choledocholithiasis, probably passed a stone. PLAN: To begin clear liquids and when tolerating may discharge home for Dr. Estrada to do a laparosco pic cholecystectomy later.
--- NOTE | 2018-05-24 13:14 | HP ---
PRIMARY CARE PHYSICIAN: Jade Lisa ATTENDING PHYSICIAN: Dr. Estrada. REASON FOR CONSULTATION: Aid in medical management. HISTORY OF PRESENT ILLNESS: Ms. Platt is a pleasant 38-year-old female that has a history of hyper tension and diabetes mellitus. She was in her usual state of health until about 2 months ago when sh jina began having some pain in the epigastric region that would come and go and typically would be worse after eating. She would also have some nausea and vomiting associated with it as well, also worse a fter eating. She also had around the same time been found to have a adrenal tumor on the right kidne y. At that time, they were concerned that this could be precipitating some of her symptoms. Therefo re, it was recommended that she undergo the removal of the right adrenal tumor and see if her symptom s would improve. However, the adrenal gland was removed about a month ago and she says since then, h er symptoms have actually worsened. She continues to have epigastric pain, which is becoming longer and longer. She also noted some cold sweats, but no fevers. She also says it feels like the food is getting stuck when she tries to eat. She says the pain is extremely severe and as a result, she cam e to the emergency room. There was found, she has evidence of cholelithiasis as well as elevation of her LFTs and some inflammation around the pancreas as well and she is being admitted to the surgical service for evaluation and we have been consulted from the Hospitalist Service for medical managemen t. The patient currently says the pain is improved, but this is after being given morphine in the ER . She denies having any chest pain. She has had some shortness of breath, but this is usually with association with the pain. No PND, no orthopnea. She says she generally was walking prior to having her previous surgery. She was able to climb a flight of steps without any difficulty and has not farris d any previous problems with surgery in the past. She also denies any leg pain or any leg swelling. REVIEW OF SYSTEMS: All systems were reviewed and are negative except for that mentioned in the histo ry of present illness. PAST MEDICAL HISTORY: Significant for hypertension, diabetes, depression, right adrenal mass and obe sity. PAST SURGICAL HISTORY: She has had a tonsillectomy, surgery on her right arm due to her fracture whe n she was a kid, right adrenalectomy and 5 cysts removed from her right thumb. ALLERGIES: SHRIMP, LISINOPRIL and ROCEPHIN. SOCIAL HISTORY: She denies any smoking. She occasionally drinks. She is single, has 2 children. FAMILY HISTORY: Significant for diabetes and hypertension. MEDICATIONS: Include metformin 500 mg twice a day, losartan 25 mg daily, Toujeo 20 units at bedtime. PHYSICAL EXAMINATION: GENERAL: She is alert and oriented. She appears to be in no acute distress. She is well-developed and well-nourished, and she is obese. VITAL SIGNS: Blood pressure was 131/87, heart rate 90, respiratory rate is 16, temperature is 97.9. HEENT: Pupils are equal, round, and reactive. Extraocular muscles are intact. Her sclerae are anic teric. Throat: There is no erythema, no exudates. NECK: No adenopathy, no bruits, no jugular venous distention. LUNGS: Clear to auscultation. There was no wheezing, no rales, no rhonchi bilaterally. CARDIOVASCULAR: She had a normal S1 and S2. I did not appreciate an S3 or S4. No murmurs, no click s, no rubs. ABDOMEN: Obese, it is soft. There was some epigastric tenderness. There is no rebound, no guarding , however, no appreciable organomegaly. EXTREMITIES: There is no clubbing, cyanosis, no edema. No calf tenderness and no joint effusions in the lower extremities or crepitus. NEUROLOGIC: Muscle strength is 5/5 in both her upper and lower extremities and her cranial nerves ar e grossly intact. SKIN AND INTEGUMENT: There are no skin changes. No rash. She has got palpable dorsalis pedis pulse s. LABORATORY DATA: Lab results were reviewed. Sodium was 135, potassium 3.6, chloride is 109, CO2 is 23, BUN of 9, creatinine 0.67, glucose is 127, total bilirubin initially of 3.3. Her ALT is 110, AST is 67. White blood cell count initially was 14.5, currently is 9.4. Hemoglobin 9.1, hematocrit 29. 1, and platelet count was 254. ASSESSMENT AND PLAN: This is a pleasant 38-year-old female who presents to the emergency room with c omplaints of severe abdominal pain. She was found to have evidence of cholelithiasis on the CT scan of her abdomen as well as on the ultrasound as well as having some inflammatory changes around the pa ncreas and enhancement of the gallbladder. She also had a leukocytosis and elevated lipase as well a s transaminases. She therefore has an acute cholelithiasis as well as pancreatitis and possible evid ence of ascending cholangitis. This is being managed by the primary team, which is the general surgi shilpi team. It appears she is currently on IV antibiotics as well as bowel rest, IV fluids, and antiem etics for this. We have been asked to help manage diabetes and hypertension. 1. With regards to diabetes mellitus, she is currently n.p.o., we will therefore hold metformin and treat her with a sliding scale insulin. When she is able to tolerate p.o., she can then be transitio loraine back on her usual medications. 2. Hypertension, we will go ahead and hold losartan and treat her with IV hydralazine p.r.n., which is already been ordered and we will continue to follow along with you. 3. With regards to the gallstone pancreatitis, once again this is being managed by General Surgery a s well as and appears a consult has been placed for Gastroenterology as well. Agree with deep venous thrombosis and gastrointestinal prophylaxis and we will be happy to follow along with you.
--- NOTE | 2018-05-24 15:26 | CON ---
DATE OF CONSULTATION: 05/24/2018 GI INPATIENT CONSULTATION NOTE REQUESTING PHYSICIAN: Dr. Estrada. REASON FOR CONSULTATION: Gallstone pancreatitis. HISTORY OF PRESENT ILLNESS: Amaya Platt is a 38-year-old woman who was admitted to the hospital last night by Dr. Estrada. She has a history of diabetes and obesity. About a month ago, she underwe nt resection of a right-sided adrenal myolipoma. She had been having some stuttering abdominal pain preceding the surgery, but over the past few weeks since then has had continued episodic epigastric p ains. This is a tightness sensation in the epigastrium which will come and go for a few days at a ti me. Yesterday, the pain got quite severe and escalated with nausea and vomiting and she presented to the emergency department. CT imaging demonstrated some inflammatory stranding around the pancreas w hich is mild and some mild hyperenhancement of the gallbladder and common bile duct, though no biliar y dilation. Then, an abdominal ultrasound confirmed cholelithiasis with stones in the gallbladder ne ck. The common bile duct was only 7 mm in size. No evidence of intrahepatic biliary dilation and th e liver appeared normal. She had elevated LFTs with total bilirubin up to 3.5. With supportive care overnight, she is feeling much better this morning. There is actually no nausea or vomiting since a rrival. Her abdominal pain has significantly improved. Dr. Viramontes has advanced her to a clear liquid diet this morning and she is actually doing well with this. So far, she has no other complaints. L iver tests have declined overnight with total bilirubin normalizing to 0.8. REVIEW OF SYSTEMS: Full review of systems including constitutional, head, eyes, ears, nose, throat, GI, , cardiovascular, respiratory, musculoskeletal, and neurologic systems is negative except as no landry in the HPI. PAST MEDICAL HISTORY: Diabetes, hypertension, miscarriage x2, depression, morbid obesity, right-side d adrenal myolipoma, surgically removed on 04/24/2018, gallstones. ALLERGIES: SHRIMP, LISINOPRIL, ROCEPHIN. SOCIAL HISTORY: She is a nonsmoker. Alcohol use is occasional. No drug use. FAMILY HISTORY: Positive for diabetes and heart disease in multiple family members. OUTPATIENT MEDICATIONS: Metformin, losartan, insulin glargine 20 units subcutaneous at nighttime. INPATIENT MEDICATIONS: Levofloxacin IV, ketorolac p.r.n., insulin sliding scale, Tylenol p.r.n., Pro tonix 40 mg IV daily, Zofran p.r.n., promethazine p.r.n. PHYSICAL EXAMINATION: VITAL SIGNS: Temperature 98.3, pulse 97, blood pressure 123/84, 95% oxygen saturation on room air. GENERAL: A 38-year-old woman lying in bed comfortably in no distress. SKIN: No jaundice, no rashes were palpable. EYES: No scleral icterus. Extraocular movements intact. ENT: Mucous membranes moist, no oral lesions. LYMPH: No submandibular or supraclavicular lymphadenopathy. THYROID: Nontender to palpation. HEART: Regular rate and rhythm. LUNGS: Clear to auscultation bilaterally. ABDOMEN: Bowel sounds are hypoactive, but present. The abdomen is soft. There is some tenderness t o palpation in the epigastrium, but no guarding or rebound tenderness. No masses or organomegaly dejon reciated. EXTREMITIES: No peripheral edema. VESSELS: Radial pulses 2+ bilaterally. NEUROLOGIC: Cranial nerves II-XII intact bilaterally. No focal deficits. LABORATORY DATA: WBC initially 14.5, now down to 9.4, hemoglobin 12.0, now down to 9.1 with IV hydra tion, platelets 254. Sodium 135, potassium 3.6, BUN 9, creatinine 0.67, glucose 126, total bilirubin initially 3.3, now down to 0.8, AST initially 275, now down to 67, ALT initially 194, now down to 11 0, alkaline phosphatase initially 223, now down to 155. Lipase 7054. Serum test negative. Urinalysis showed 11-20 wbcs. IMAGING DATA: CT of the abdomen and pelvis and abdominal ultrasound from yesterday, as detailed in t he HPI. ASSESSMENT AND PLAN: 1. Biliary pancreatitis. The pancreatitis itself is clinically mild. She is hemodynamically stable with favorable laboratory profile and a good supportive care overnight. Symptoms have significantly improved and she is actually already tolerating clear liquid diet. 2. Cholelithiasis, with abdominal ultrasound showing multiple stones of the gallbladder neck. Her p resentation is most consistent with biliary pancreatitis. Given the significant LFT elevation which is now rapidly improved overnight along with symptoms, it is most likely that she passed a stone from her common bile duct. Common bile duct is now normal and LFTs have now improved. No indication for ERCP at this time. I would recommend continuing supportive care, advancing diet slowly as tolerated . If she is able to do this without significant recurrence of symptoms, then I do think she could be discharged to follow up closely with Dr. Estrada for consideration of cholecystectomy, as is currentl y planned. If symptoms were to significantly worsen again, her LFTs bump back up, we may have to con power superintendent ERCP before that time, but right now, no plan for ERCP. Thank you for the consultation. Please call any time with questions or concerns.
[2018-05-24] MEDS: Enoxaparin Sodium 40 MG/0.4 ML SYRINGE SC SCH (20:06)
[2018-05-24] MEDS: Ketorolac Tromethamine 30 MG/ML VIAL IVP PRN (20:13)
[2018-05-25] MEDS: Sodium Chloride 0.9% 1,000 ML IV SCH (03:51)
[2018-05-25 05:36] LABS: #Eosinphils 0.2 thou/uL (0.0-0.7); #Lymphocytes 2.2 thou/uL (1.20-3.40); #Monocytes 0.5 thou/uL (0.11-0.59); #Neutrophils 4.4 thou/uL (1.40-6.50); %Basophils 0.1 % (0.0-1.0); %Eosinophils 3.1 % (0.0-10.0); %Lymphocytes 29.7 % (21.0-51.0); %Monocytes 7.1 % (0.0-10.0); Hemoglobin 8.9 g/dL (12.0-16.0); Mean Corpuscular HGB CONC 31.5 g/dL (32.0-36.0); Mean Corpuscular Hemoglobin 23.3 pg (27.0-31.0); Mean Corpuscular Volume 73.9 fL (78.0-98.0); Mean Platelet Volume 9.8 fL (7.4-10.4); Platelet Count 222 thou/uL (130-400); RBC Distribution Width 14.1 % (11.5-14.5); White Blood Cell (WBC) Count 7.4 thou/uL (4.8-10.8)
[2018-05-25 06:02] LABS: ALT (SGPT) 65 U/L (8-55); AST (SGOT) 20 U/L (5-34); Alkaline Phosphatase 116 U/L (40-150); Anion Gap 11 mmol/L (10-20); BUN (Urea Nitrogen) 5 mg/dL (7.0-18.7); Bilirubin, Total 0.4 mg/dL (0.2-1.2); Calc. Creatinine Clearance 205 mL/min (70-130); Calcium 8.1 mg/dL (7.8-10.44); Carbon Dioxide 23 mmol/L (22-29); Chloride 110 mmol/L (98-107); Estimated GFR-MDRD Greater than 90; Glucose 115 mg/dL (70-105); Potassium 3.6 mmol/L (3.5-5.1); Sodium 140 mmol/L (136-145)
[2018-05-25 07:51] VITALS: BP 124/80; TEMP 98.2
[2018-05-25] MEDS: Pantoprazole 40 MG VIAL IVP SCH (08:40)
--- NOTE | 2018-05-25 15:59 | DIS ---
DISCHARGE DIAGNOSIS: Symptomatic cholelithiasis. PROCEDURES DURING ADMISSION: IV fluids. HOSPITAL COURSE: Patient was admitted, kept n.p.o., treated with IV fluids. She got better. She is now tolerating diet. She is free of pain. She has been advised to stay on a low fat diet, small vo lume diet and follow up with Dr. Estrada in 1-2 weeks for evaluation for possible laparoscopic cholecy stectomy in the future.
--- NOTE | 2018-05-26 07:15 | HP ---
HISTORY: Lc is a 38-year-old morbidly obese female, 1 month status post, 04/22/2018, right adre nalectomy for myelolipoma. Pathology benign. Chevron type incision was made. Prior to this operati on, I have seen the patient. Regarding her symptoms, it sounds somewhat biliary but it was felt that the large 15 cm mass was probably causing some GI outlet obstruction and an ultrasound performed of her gallbladder, 03/03/2018, was unremarkable. CAT scan 02/21/2018 performed revealed lipoma a nd normal bile duct. The patient postoperatively had done well initially, but in the last two weeks has had intermittent episodes of epigastric right upper quadrant pain. These episodes last 30 minute s to an hour, but more recently, she became more ill and Dr. Faulkner saw her in our office and sent he r to the emergency room. She felt clinically she is having gallbladder problems. In the emergency r oom, white count was 14, hemoglobin 12. Sodium 135, bilirubin 3.3, AST and ALT 275/194, lipase 7054. Abdominal ultrasound obtained revealed gallstones 7 mm bile duct. CAT scan of the abdomen and pelv is obtained with contrast revealed changes consistent with pancreatitis, status post right adrenalect gloria and myelolipoma removal and changes regarding common bile duct mucosa may reflect cholangitis. ALLERGIES: CEFTRIAXONE, LISINOPRIL, IODINE. TOBACCO: Socially. ALCOHOL: Socially. MEDICATIONS: Metformin b.i.d., Ambien p.r.n., losartan daily, insulin 20 units subcu at bedtime, hyd rocodone p.r.n. pain, Tylenol No. 3 p.r.n. pain. PAST MEDICAL HISTORY: Morbid obesity, metabolic syndrome, hypertension, diabetes mellitus,miscarriag e x2, depression. PHYSICAL EXAMINATION: VITAL SIGNS: 112 kilograms, heart rate 74, 150/78, 97.7 degrees, respiratory rate 16. HEENT: Unremarkable. LUNGS: Clear to auscultation. CARDIAC: Regular rate and rhythm without murmur or gallop. ABDOMEN: Soft, tenderness throughout her right abdomen, mild guarding. EXTREMITIES: Unremarkable. Well-healed right upper quadrant scar. LABORATORIES: As noted above. Renal function is normal. Creatinine 0.88, GFR 72. BUN 11. Sodium 135, bilirubin 3.3, AST 275, ALT 194. ASSESSMENT AND PLAN: 1. Biliary pancreatitis. We will plan aggressive hydration, observation. We will initiate antibiot ics due to radiological findings suggestive of cholangitis. We will consult Gastroenterology. The p atient is 1 month status post open right adrenalectomy. If the patient needs an ERCP that this could be performed and cholecystectomy could be performed at a later time more remote from surgery. We wi ll see how she does clinically. Dr. Viramontes is covering the weekend. I will return Saturday. 2. Morbid obesity. 3. Hypertension. 4. Diabetes mellitus.
== END 2018-05-25 11:10 | disposition home or self-care (01) | DRG 444 ==
LOC: ERS 11:25 → SURG A 17:42
PROVIDERS: ADMIT Specialist; ATTEND Specialist
DX: K80.20 Calculus of gallbladder without cholecystitis without obstruction (principal); K85.10 Biliary acute pancreatitis without necrosis or infection; Z68.42 Body mass index [BMI] 45.0-49.9, adult; E66.01 Morbid (severe) obesity due to excess calories; E88.81 Metabolic syndrome and other insulin resistance; I10 Essential (primary) hypertension; E11.9 Type 2 diabetes mellitus without complications; F32.9 Major depressive disorder, single episode, unspecified; Z79.4 Long term (current) use of insulin; Z83.3 Family history of diabetes mellitus; Z82.49 Family history of ischemic heart disease and other diseases of the circulatory system
CPT/HCPCS: 36415; 36416; 74177; 76705; 80053; 81001; 83690; 84703; 85025; 87077; 87086; 87186; 90471; 90686; 96361; 96365; 96375; 96376; C9113; G0008; J0131; J1650; J1885; J1956; J2270; J2405; J2550; J7050

== ENCOUNTER 2018-10-19 14:20 | Inpatient (IN) | payer BC, SELFPAY ==
[2018-10-19] MEDS ORDERED: Morphine 4 MG/ML VIAL ONE (15:05)
[2018-10-19] MEDS ORDERED: Ondansetron PF 4 MG/2 ML Vial ONE (15:06)
[2018-10-19] MEDS ORDERED: Ketorolac Tromethamine 30 MG/ML VIAL ONE (15:06)
[2018-10-19 15:14] LABS: Hemoglobin 11.5 g/dL (12.0-16.0); Mean Corpuscular HGB CONC 31.3 g/dL (32.0-36.0); Mean Corpuscular Hemoglobin 22.3 pg (27.0-31.0); Mean Corpuscular Volume 71.2 fL (78.0-98.0); Platelet Count 284 thou/uL (130-400); RBC Distribution Width 19.4 % (11.5-14.5); Red Blood Cell (RBC) Count 5.17 mill/uL (4.20-5.40); White Blood Cell (WBC) Count 10.4 thou/uL (4.8-10.8)
[2018-10-19 15:17] LABS: BHCG - Serum Negative (NEGATIVE); Pregs Control Bar Appear? YES (CONTROL BAR)
[2018-10-19 15:18] LABS: Pregs Control Background? CLEAR/WHITE (CLR/WHITE)
[2018-10-19 15:32] LABS: ALT (SGPT) 215 U/L (8-55); AST (SGOT) 173 U/L (5-34); Albumin 3.8 g/dL (3.5-5.0); Alkaline Phosphatase 204 U/L (40-150); Anion Gap 13 mmol/L (10-20); BUN (Urea Nitrogen) 6 mg/dL (7.0-18.7); Calc. Creatinine Clearance 0 mL/min (70-130); Carbon Dioxide 24 mmol/L (22-29); Chloride 103 mmol/L (98-107); Estimated GFR-MDRD 84; Globulin 3.7 g/dL (2.4-3.5); Glucose 254 mg/dL (70-105); Protein, Total 7.5 g/dL (6.0-8.3); Sodium 136 mmol/L (136-145)
[2018-10-19 15:46] LABS: Lipase 5546 U/L (8-78)
[2018-10-19 15:51] LABS: #Eosinphils 0.2 thou/uL (0.0-0.7); #Lymphocytes 2.1 thou/uL (1.20-3.40); #Monocytes 0.7 thou/uL (0.11-0.59); #Neutrophils 7.5 thou/uL (1.40-6.50); %Basophils 0.2 % (0.0-1.0); %Eosinophils 1.7 % (0.0-10.0); %Lymphocytes 19.7 % (21.0-51.0); %Monocytes 6.7 % (0.0-10.0); %Neutrophils 71.7 % (42.0-75.0); Anisocytosis SLIGHT = 6-15 cells (100X) (0-5/hpf); Hypochromia SLIGHT = 6-15 cells (100X) (0-5/hpf); Large Platelets SLIGHT; MDiff Complete? YES; Microcytosis SLIGHT = 6-15 cells (100X) (0-5/hpf); Platelet Morphology Comment Appears Adequate
[2018-10-19] MEDS ORDERED: Ondansetron PF 4 MG/2 ML Vial IVP PRN ×2 (17:19→19:54)
[2018-10-19] MEDS ORDERED: Sodium Chloride 0.9% 1,000 ML IV SCH (17:19)
[2018-10-19] MEDS ORDERED: Morphine 4 MG/ML VIAL SLOW IVP PRN ×2 (17:19→19:54)
[2018-10-19 18:45] VITALS: BMI 43.0
--- NOTE | 2018-10-19 19:24 | ULT ---
RIGHT UPPER QUADRANT ULTRASOUND: History: Right upper quadrant pain. FINDINGS: Several mobile gallstones with at least one stone down in the neck of the gallbladder with some borde rline gallbladder wall distention but without definitive gallbladder wall thickening or pericholecyst ic fluid. Common bile duct 0.6 cm. Liver is borderline in size. Visualized right kidney is unremarkab le. IMPRESSION: Cholelithiasis with several mobile gallstones and at least one gallstone in the neck of the gallbladd er with gallbladder wall distention but without overt gallbladder wall thickening or pericholecystic fluid or significant ductal dilatation. Unremarkable right kidney. Partially obscured pancreas. POS: SAMSON
[2018-10-19] MEDS ORDERED: Dextrose 50% Abboject 50 ML SYRINGE SLOW IVP PRN (19:54)
[2018-10-19] MEDS ORDERED: Dextrose 5% in Water 1,000 ML IV PRN (19:54)
[2018-10-19] MEDS: Sodium Chloride 0.9% 1,000 ML IV SCH (21:15)
[2018-10-19] MEDS: Morphine 4 MG/ML VIAL SLOW IVP PRN (21:20)
[2018-10-19] MEDS: Famotidine/PF 20 mg/2ml Vial SLOW IVP SCH (21:25)
--- NOTE | 2018-10-19 22:14 | HP ---
CHIEF COMPLAINT: Epigastric abdominal pain, recurrent biliary pancreatitis. HISTORY OF PRESENT ILLNESS: The patient is a morbidly obese 38-year-old female. She has a history of gallstone pancreatitis in May 2018. This surgery happened shortly after she had an open right adrenalectomy per Dr. Faulkner in April of 2018. Pathology from that resection revealed a benign myelolipoma measuring up to 15 cm. The patient was recommended to follow up with General Surgery for cholecystectomy but because of insurance related reason, she was unable to do so and felt that she could manage her gallbladder disease with diet and exercise. She had a recurrent episode of the same epigastric abdominal pain with nausea and vomiting last night, presented to the emergency room. Laboratory studies revealed that she had essentially a normal CBC with hemoglobin of 11.5 and white blood cell count of 10.4. Her metabolic panel revealed normal electrolytes. Her glucose is elevated at 254 and her bilirubin is elevated at 3.0 with lipase elevated at 5500. Gallbladder ultrasound revealed gallstones. PAST MEDICAL HISTORY: Significant for diabetes, hypertension, morbid obesity (BMI is about 45). PAST SURGICAL HISTORY: Open adrenalectomy, right wrist ganglion cyst removal, tonsillectomy. ALLERGIES: TO CEFTRIAXONE, LISINOPRIL, IODINE. CURRENT MEDICATIONS: Include: 1. Metformin. 2. Losartan. She is supposed to take insulin, but has not been taking this secondary to insurance related reasons. PERSONAL AND SOCIAL HISTORY: She is with two children. She works at a [employer]. She drinks alcohol occasionally and does not smoke. REVIEW OF SYSTEMS: Unremarkable. FAMILY HISTORY: Noncontributory. PHYSICAL EXAMINATION: VITAL SIGNS: Temperature 98.0, pulse 95, blood pressure 139/91. Her current weight is 235 pounds with a BMI of 43. GENERAL: She is a well-developed, well-nourished, pleasant, articulate female, resting in bed, in no acute distress. She is alert and oriented x3. HEAD, EYES, EARS, NOSE, AND THROAT: Unremarkable. NECK: Supple without mass or tenderness. LUNGS: Clear to auscultation throughout. CARDIAC: Regular rate and rhythm without murmur. ABDOMEN: Obese, but soft. She has minimal epigastric tenderness at this point. EXTREMITIES: Unremarkable. ASSESSMENT: The patient with gallstone pancreatitis. PLAN: Repeat laboratory evaluation tomorrow. If her pancreatitis is resolving appropriately, would plan to proceed with laparoscopic cholecystectomy. I have discussed the operation with the patient, as well as potential risks. She understands and agrees to proceed with surgery. Job ID: [id number]
[2018-10-20] MEDS: Sodium Chloride 0.9% 1,000 ML IV SCH ×3 (02:45→21:51)
[2018-10-20 05:44] LABS: #Eosinphils 0.3 thou/uL (0.0-0.7); #Lymphocytes 2.4 thou/uL (1.20-3.40); #Monocytes 0.6 thou/uL (0.11-0.59); %Basophils 0.4 % (0.0-1.0); %Eosinophils 2.9 % (0.0-10.0); %Lymphocytes 25.8 % (21.0-51.0); %Monocytes 6.6 % (0.0-10.0); %Neutrophils 64.2 % (42.0-75.0); Hemoglobin 10.9 g/dL (12.0-16.0); Mean Corpuscular HGB CONC 30.9 g/dL (32.0-36.0); Mean Corpuscular Hemoglobin 22.3 pg (27.0-31.0); Mean Corpuscular Volume 72.3 fL (78.0-98.0); Mean Platelet Volume 11.6 fL (7.4-10.4); Platelet Count 267 thou/uL (130-400); RBC Distribution Width 19.3 % (11.5-14.5); Red Blood Cell (RBC) Count 4.89 mill/uL (4.20-5.40); White Blood Cell (WBC) Count 9.3 thou/uL (4.8-10.8)
[2018-10-20 06:05] LABS: ALT (SGPT) 155 U/L (8-55); AST (SGOT) 63 U/L (5-34); Albumin 3.5 g/dL (3.5-5.0); Alkaline Phosphatase 181 U/L (40-150); Anion Gap 10 mmol/L (10-20); BUN (Urea Nitrogen) 8 mg/dL (7.0-18.7); Bilirubin, Total 0.9 mg/dL (0.2-1.2); Calc. Creatinine Clearance 181 mL/min (70-130); Calcium 8.4 mg/dL (7.8-10.44); Carbon Dioxide 25 mmol/L (22-29); Chloride 107 mmol/L (98-107); Estimated GFR-MDRD Greater than 90; Globulin 3.5 g/dL (2.4-3.5); Glucose 170 mg/dL (70-105); Lipase 955 U/L (8-78); Sodium 138 mmol/L (136-145)
[2018-10-20] MEDS: Famotidine/PF 20 mg/2ml Vial SLOW IVP SCH ×2 (08:15→21:50)
[2018-10-20] MEDS ORDERED: Glycopyrrolate 0.2 MG/ML 5 ML SYRINGE ONE (10:26)
[2018-10-20] MEDS ORDERED: Rocuronium Bromide 10 MG/ML (10ML VIAL) ONE (10:27)
[2018-10-20] MEDS ORDERED: Dexamethasone 20 MG/5 ML VIAL ONE (10:27)
[2018-10-20] MEDS ORDERED: Lidocaine 1% PF 5 ML VIAL ONE (10:27)
[2018-10-20] MEDS ORDERED: PROPOFOL 200 MG/20 ML VIAL ONE (10:27)
[2018-10-20] MEDS ORDERED: Ondansetron PF 4 MG/2 ML Vial ONE (10:27)
[2018-10-20] MEDS: Morphine 4 MG/ML VIAL SLOW IVP PRN ×2 (12:37→21:49)
[2018-10-20] MEDS ORDERED: Levofloxacin 500 mg/D5W 100 ml Premix Bag ONE (15:09)
[2018-10-20] MEDS ORDERED: Ketorolac Tromethamine 30 MG/ML VIAL ONE (15:10)
[2018-10-20] MEDS ORDERED: Fentanyl 100 MCG/2 ML VIAL ONE (15:14)
[2018-10-20] MEDS ORDERED: Bupivacaine/Epinephrine 0.25% 30 ML VIAL ONE (15:17)
[2018-10-20] MEDS ORDERED: Iothalamate Meglumine 60% 50 ML VIAL FS ONE ×3 (15:17→17:48)
[2018-10-20] MEDS ORDERED: Indomethacin 50 MG SUPP ONE (17:42)
--- NOTE | 2018-10-20 18:12 | RAD ---
CHOLANGIOGRAM IN SURGERY: History: Cholecystectomy. Comparison: Ultrasound, prior day. FINDINGS: Single spot fluoroscopic images were obtained. There is contrast instilled into the cystic duct which is cannulated. The common bile duct is dilated as well as the intrahepatic biliary system. IMPRESSION: Fluoroscopy for surgical use. POS: SAMSON
[2018-10-20] MEDS ORDERED: Promethazine HCl 25 MG/ML VIAL IM PRN (18:46)
[2018-10-20] MEDS ORDERED: Ondansetron HCl/PF 4 MG/2 ML Vial IVP PRN (18:46)
[2018-10-20] MEDS ORDERED: Ketorolac Tromethamine 30 MG/ML VIAL IVP PRN (18:46)
[2018-10-20] MEDS ORDERED: Promethazine HCl 25 MG/ML VIAL SLOW IVP PRN (18:46)
--- NOTE | 2018-10-20 19:48 | RAD ---
ERCP: History: Stent removal. Comparison: CT 05-23-18 FINDINGS: Initially there is intrahepatic and extrahepatic biliary dilatation. There appears to be a balloon sw eep with removal of stones and intrahepatic and extrahepatic biliary dilation has decreased. IMPRESSION: Interval stone removal with decreased biliary dilation on the last image. POS: SAMSON
--- NOTE | 2018-10-21 01:32 | OP ---
DATE OF PROCEDURE: 10/20/2018 PROCEDURES PERFORMED: Endoscopic retrograde cholangiopancreatography with sphincterotomy and balloon stone extraction. PREOPERATIVE DIAGNOSIS: Choledocholithiasis and gallstone pancreatitis. DESCRIPTION OF PROCEDURE: Informed consent was obtained from the patient's family. She was performed under the same general anesthesia as the cholecystectomy. The duodenoscope was advanced to the second portion of the duodenum easily through the patient's mouth. She was placed in the prone position for the procedure. The ampulla was identified and was bulbous with no significant bile flow. Cholangiogram revealed all the contrast to still be in the bile duct from the intraoperative cholangiogram. The common bile duct was cannulated without difficulty on initial touch of the ampulla selectively with a guidewire. There was a stone impacted at the ampulla. A complete sphincterotomy was performed. There was a 4 mm stone which was removed with the sphincterotomy and sphincterotome wire. The contrast was then immediately drained from the duct completely. Occlusion cholangiogram was then performed with a 9-12 mm balloon. A 9-mm balloon was used to sweep the duct and confirmed the duct was clear. The intra and extrahepatic ducts were unremarkable. Again, the contrast drained rapidly from the duct once a balloon was passed through the ampulla. The fluid and air were suctioned from the stomach. Procedure was completed without immediate complications. IMPRESSION: 1. Choledocholithiasis. A 4 mm cholesterol stone was extracted with sphincterotomy and with the sphincterotome wire. The stone was impacted at the ampulla. 2. Otherwise normal cholangiogram and occlusion cholangiogram. RECOMMENDATIONS: Repeat her liver tests in the morning. Job ID: [id number]
[2018-10-21] MEDS: Sodium Chloride 0.9% 1,000 ML IV SCH ×2 (05:49→16:41)
[2018-10-21 07:01] LABS: #Lymphocytes 1.2 thou/uL (1.20-3.40); #Monocytes 0.4 thou/uL (0.11-0.59); #Neutrophils 10.2 thou/uL (1.40-6.50); %Basophils 0.2 % (0.0-1.0); %Eosinophils 0.1 % (0.0-10.0); %Lymphocytes 10.2 % (21.0-51.0); %Monocytes 3.6 % (0.0-10.0); Mean Corpuscular HGB CONC 31.2 g/dL (32.0-36.0); Mean Corpuscular Hemoglobin 22.3 pg (27.0-31.0); Mean Corpuscular Volume 71.4 fL (78.0-98.0); Mean Platelet Volume 11.4 fL (7.4-10.4); Platelet Count 265 thou/uL (130-400); Red Blood Cell (RBC) Count 4.48 mill/uL (4.20-5.40); White Blood Cell (WBC) Count 11.9 thou/uL (4.8-10.8)
[2018-10-21 07:28] LABS: ALT (SGPT) 122 U/L (8-55); AST (SGOT) 64 U/L (5-34); Albumin 3.3 g/dL (3.5-5.0); Alkaline Phosphatase 184 U/L (40-150); Anion Gap 16 mmol/L (10-20); BUN (Urea Nitrogen) 12 mg/dL (7.0-18.7); Bilirubin, Total 0.7 mg/dL (0.2-1.2); Calc. Creatinine Clearance 176 mL/min (70-130); Calcium 8.3 mg/dL (7.8-10.44); Carbon Dioxide 18 mmol/L (22-29); Chloride 105 mmol/L (98-107); Estimated GFR-MDRD 89; Globulin 3.4 g/dL (2.4-3.5); Glucose 177 mg/dL (70-105); Lipase 62 U/L (8-78); Potassium 4.1 mmol/L (3.5-5.1); Protein, Total 6.7 g/dL (6.0-8.3); Sodium 135 mmol/L (136-145)
[2018-10-21] MEDS: Morphine 4 MG/ML VIAL SLOW IVP PRN ×2 (08:11→12:24)
[2018-10-21] MEDS: Famotidine/PF 20 mg/2ml Vial SLOW IVP SCH (08:13)
[2018-10-21 16:14] VITALS: BP 131/84; TEMP 97.7
--- NOTE | 2018-10-22 01:15 | DIS ---
DATE OF ADMISSION: 10/19/2018 DATE OF DISCHARGE: 10/21/2018 ADMISSION DIAGNOSIS: Gallstone pancreatitis. DISCHARGE DIAGNOSIS: Gallstone pancreatitis. OPERATION PERFORMED: Laparoscopic cholecystectomy with intraoperative cholangiogram, ERCP per Dr. Olvin Li. ADMISSION HISTORY: The patient is a 38-year-old morbidly obese female. She presented to the emergency room with repeat episode of gallstone pancreatitis. She had typical elevation of lipase and bilirubin. She was admitted to the hospital for further care. HOSPITAL COURSE: By the day after her admission, her bilirubin had dropped down to normal and her lipase had dropped down to 900 (from 5500). I recommended proceeding for surgery. A difficult laparoscopic cholecystectomy was performed on 10/20. The cholangiogram revealed a small impacted stone at the distal duct. Dr. Olvin Li was consulted intraoperatively and was able to take the patient to the operating room for an uneventful ERCP, at which time, he removed an impacted stone. Today is postoperative day #1. She has had normal vital signs and is tolerating her liquid diet. Her laboratory studies reveal that her hemoglobin is stable at 10. Her bilirubin is normal at 0.7 and her lipase is completely normalized at 62. She is felt to be stable for discharge home. She is given discharge prescriptions for tramadol and asked to follow up with myself in 2 weeks. Job ID: [id number]
--- NOTE | 2018-10-24 17:01 | OP ---
DATE OF PROCEDURE: 10/20/2018 PREOPERATIVE DIAGNOSIS: Gallstone pancreatitis. POSTOPERATIVE DIAGNOSIS: Gallstone pancreatitis. OPERATION PERFORMED: Laparoscopic cholecystectomy with intraoperative cholangiogram. ANESTHESIA: General endotracheal. INDICATIONS: The patient is a 38-year-old morbidly obese female. She presented with an episode of recurrent gallstone pancreatitis. She also had a prior right upper quadrant incision, through which a right adrenalectomy was performed this past year. She was taken to the operative room at this time for laparoscopic cholecystectomy and cholangiogram. Her pancreatic enzymes and total bilirubin have markedly normalized since her admission yesterday. DESCRIPTION OF OPERATION: Informed consent was obtained. The patient was taken to the operating room where general endotracheal anesthesia was obtained with the patient in supine position. Abdomen was prepped with ChloraPrep, draped in sterile fashion. Local anesthetic was infiltrated and 11 mm infraumbilical incision was created through which a Veress needle was passed into the peritoneal cavity and pneumoperitoneum was established with carbon dioxide up to pressure of 15 mmHg. An 11 mm trocar port was passed through the same incision and laparoscopic camera was passed this port. Under direct vision, a 5 mm port was placed to the left of her prior chevron incision. This was placed to begin to take down the adhesions to the anterior abdominal wall underlying her incision. These adhesions were all omental and were all taken down carefully. After this was completed, the anterior abdominal wall was cleared, I placed two additional 5 mm ports in the usual right upper quadrant location. There were extensive adhesions underneath the liver including the segments of the colon. I recognized the colon and very carefully dissected this off the liver without injuring the colon. I eventually was able to grasp the gallbladder and retracted in a cephalad direction. There were abundant adhesions underneath the liver, probably all related to her recent surgery. These required lengthy lysis of adhesions. The adhesions underneath the falciform ligament were also taken down. With difficulty, I was able to eventually dissect down to the apex of the gallbladder. This was grasped and retracted laterally and inferiorly. Careful dissection was carried out to identify the cystic duct and cystic artery. The artery was divided between clips leaving 2 on the side to remain within the abdomen. The duct was clipped proximally and noted to be quite dilated. A cholangiogram was obtained which revealed a dilated common duct with a small distal obstruction. There was no passage of contrast into the duodenum. Glucagon was given and there was still no passage. I therefore removed the cholangiocath and clipped the duct distally and divided the duct. I then placed a PDS Endoloop on the dilated duct as well. The gallbladder was dissected with difficulty at the gallbladder fossa using electrocautery. The gallbladder was removed from the abdomen through the 11 mm port. The fascia was then closed with 0 Vicryl suture using a GraNee needle. The gallbladder fossa was carefully irrigated and cauterized to obtain hemostasis. The clips were noted to be intact. At the point that I was satisfied that there was no ongoing bleeding and certainly no bile leak, I aspirated all irrigant. All ports and instruments were removed under direct vision. Pneumoperitoneum was carefully evacuated. 0.25% Marcaine with epinephrine was infiltrated at each port site. Skin edges approximated with 4-0 Monocryl subcuticular suture. Dermabond was placed externally. Of note, as soon as I noted that there was a positive cholangiogram, I contacted Dr. Olvin Li, who was on-call for Gastroenterology. He elected to proceed with ERCP immediately following this procedure. Therefore, the patient was awakened and stable, she was taken still intubated over to the endoscopy suite for ERCP per Dr. Li. Job ID: [id number]
--- NOTE | 2018-10-25 19:13 | EKG ---
Test Reason : Blood Pressure : / mmHG Vent. Rate : 082 BPM Atrial Rate : 082 BPM P-R Int : 132 ms QRS Dur : 070 ms QT Int : 380 ms P-R-T Axes : 042 002 010 degrees QTc Int : 443 ms Normal sinus rhythm No STEMI Normal ECG Confirmed by YASMANY FUENTES D.O. ([id number]), science editor FREDDY PETERSON ([id number]) on 10/25/2018 7:13:31 PM Referred By: Confirmed By:YASMANY FUENTES D.O.
== END 2018-10-21 17:00 | disposition home or self-care (01) | DRG 418 ==
LOC: ERS 14:20 → SURG B 16:18
PROVIDERS: ADMIT Specialist; ATTEND Specialist
PROC: 0FC98ZZ Extirpation of Matter from Common Bile Duct, Via Natural or Artificial Opening Endoscopic (ICD-10-PCS; principal; 2018-10-20)
PROC: 0FT44ZZ Resection of Gallbladder, Percutaneous Endoscopic Approach (ICD-10-PCS; 2018-10-20)
PROC: BF100ZZ Fluoroscopy of Bile Ducts using High Osmolar Contrast (ICD-10-PCS; 2018-10-20)
DX: K85.10 Biliary acute pancreatitis without necrosis or infection (principal); Z68.41 Body mass index [BMI] 40.0-44.9, adult; E11.9 Type 2 diabetes mellitus without complications; I10 Essential (primary) hypertension; E66.01 Morbid (severe) obesity due to excess calories; K80.50 Calculus of bile duct without cholangitis or cholecystitis without obstruction; Z90.89 Acquired absence of other organs; Z98.890 Other specified postprocedural states
CPT/HCPCS: 36415; 36416; 47532; 74330; 76705; 80053; 83690; 84703; 85025; 88304; 93005; 96374; 96375; J0131; J1100; J1610; J1885; J1956; J2001; J2270; J2405; J2704; J3010; Q9961; S0028

== ENCOUNTER 2019-03-27 13:15 | Emergency (ER) | payer BC, SELFPAY ==
[2019-03-27] MEDS ORDERED: Morphine 4 MG/ML VIAL ONE (13:55)
[2019-03-27] MEDS ORDERED: Ondansetron PF 4 MG/2 ML Vial ONE (13:55)
[2019-03-27 14:02] LABS: #Eosinphils 0.2 thou/uL (0.0-0.7); #Lymphocytes 2.5 thou/uL (1.20-3.40); #Monocytes 0.4 thou/uL (0.11-0.59); #Neutrophils 6.9 thou/uL (1.40-6.50); %Basophils 0.1 % (0.0-1.0); %Eosinophils 1.7 % (0.0-10.0); %Lymphocytes 25.6 % (21.0-51.0); %Monocytes 3.6 % (0.0-10.0); %Neutrophils 69.1 % (42.0-75.0); Mean Corpuscular HGB CONC 32.3 g/dL (32.0-36.0); Mean Corpuscular Volume 77.4 fL (78.0-98.0); Mean Platelet Volume 10.5 fL (7.4-10.4); Platelet Count 254 thou/uL (130-400); RBC Distribution Width 13.2 % (11.5-14.5)
[2019-03-27 14:22] LABS: ALT (SGPT) 20 U/L (8-55); AST (SGOT) 18 U/L (5-34); Alkaline Phosphatase 98 U/L (40-150); Anion Gap 12 mmol/L (10-20); BUN (Urea Nitrogen) 12 mg/dL (7.0-18.7); Bilirubin, Total 0.4 mg/dL (0.2-1.2); Calc. Creatinine Clearance 0 mL/min (70-130); Calcium 8.9 mg/dL (7.8-10.44); Carbon Dioxide 24 mmol/L (22-29); Chloride 100 mmol/L (98-107); Estimated GFR-MDRD 79; Globulin 3.6 g/dL (2.4-3.5); Glucose 278 mg/dL (70-105); Lipase 18 U/L (8-78); Potassium 4.1 mmol/L (3.5-5.1); Protein, Total 7.6 g/dL (6.0-8.3); Sodium 132 mmol/L (136-145)
[2019-03-27 15:27] LABS: Bilirubin Negative (Negative); Blood, Urine Negative (Negative); Clarity Clear (Clear); Glucose, Urine (Dipstick) 300 mg/dL (Negative); Leukocyte 25 Leu/uL (Negative); Nitrite Negative (Negative); Protein, Urine (Dipstick) Negative (Neg-Trace); RBC/HPF 0-3 HPF (0-3); Transitional Epithelial 0-3 HPF (None Seen); Urobilinogen Normal mg/dL (Less than 2); WBC/HPF 0-3 HPF (0-3)
[2019-03-27 15:29] LABS: Pregnancy Test - Urine (BHCG) Negative (Negative); Pregu Control Background? CLEAR/WHITE (CLR/WHITE); Pregu Control Bar Appear? YES (CONTROL BAR); Specific Gravity 1.004 (1.002-1.036)
[2019-03-27 15:37] LABS: Bacteria/HPF None Seen HPF (None Seen)
--- NOTE | 2019-03-27 15:49 | CT ---
EXAM: CT ABDOMEN AND PELVIS HISTORY: Abdominal pain. Epigastric pain. COMPARISON: 05/23/2018 Procedure: Multiple contiguous axial images were obtained and a CT of the abdomen and pelvis with IV contrast. C oronal reformats were performed. FINDINGS: Lower Chest: within normal limits. Vessels: Normal caliber aorta. No periaortic fat stranding Heart: Normal heart size. No significant pericardial fluid Abdomen: Portal vein:Patent Gallbladder: Surgically absent Liver: within normal limits. Pancreas: Previously noted inflammatory change has resolved. No evidence of pancreatitis. No evidence of a cyst or pseudocyst. Spleen: within normal limits. Adrenals: Surgically absent right adrenal gland. Previously noted seroma is no longer evident. Left a drenal gland is unremarkable Kidneys: Symmetric enhancement. No obstructive uropathy Peritoneum: No ascites or free air, no fluid collection. Bowel: Limited evaluation due to lack of oral contrast. Normal caliber small bowel loops. Ileocecal j unction is unremarkable. Caliber appendix. Scattered fecal material in a nondistended, nondilated colon. Occasional diverticulum. No diverticulitis. Mesentery and Retroperitoneum: No enlarged mesenteric or retroperitoneal lymph nodes. Abdominal Wall: within normal limits. Pelvis: Reproductive Organs: No pelvic masses. Pelvis: within normal limits. Bladder: within normal limits. Bones: Stable mild curvature of the thoracic and lumbar spine. There are no osteoblastic or osteolyti c lesions. IMPRESSION: No evidence of acute intraabdominal\pelvic abnormality.
== END 2019-03-27 17:46 | disposition home or self-care (01) ==
LOC: ERS 13:15
DX: K29.70 Gastritis, unspecified, without bleeding (principal); E78.5 Hyperlipidemia, unspecified; E78.00 Pure hypercholesterolemia, unspecified; E11.9 Type 2 diabetes mellitus without complications; I10 Essential (primary) hypertension; Z79.899 Other long term (current) drug therapy; Z79.84 Long term (current) use of oral hypoglycemic drugs
CPT/HCPCS: 74177; 80053; 81003; 81015; 81025; 83690; 85025; 96374; 96375; J2270; J2405; Q9966

== ENCOUNTER 2019-03-28 20:31 | Day surgery (SDC) | payer SELFPAY ==
[~2019-03-28 20:31] MED LIST changes: -ISOVUE-370 76%-LOCM 1 ML ONE; +Iopamidol 370 76% 100 ML VIAL ONE
[2019-03-28 21:28] LABS: #Eosinphils 0.1 thou/uL (0.0-0.7); #Lymphocytes 2.3 thou/uL (1.20-3.40); #Monocytes 0.7 thou/uL (0.11-0.59); #Neutrophils 13.2 thou/uL (1.40-6.50); %Basophils 0.3 % (0.0-1.0); %Eosinophils 0.7 % (0.0-10.0); %Lymphocytes 13.8 % (21.0-51.0); %Monocytes 4.3 % (0.0-10.0); %Neutrophils 80.9 % (42.0-75.0); Hemoglobin 12.6 g/dL (12.0-16.0); Mean Corpuscular HGB CONC 32.3 g/dL (32.0-36.0); Mean Corpuscular Hemoglobin 25.3 pg (27.0-31.0); Mean Corpuscular Volume 78.4 fL (78.0-98.0); Platelet Count 244 thou/uL (130-400); Red Blood Cell (RBC) Count 4.97 mill/uL (4.20-5.40); White Blood Cell (WBC) Count 16.4 thou/uL (4.8-10.8)
[2019-03-28 21:48] LABS: ALT (SGPT) 19 U/L (8-55); AST (SGOT) 12 U/L (5-34); Albumin 3.9 g/dL (3.5-5.0); Alkaline Phosphatase 98 U/L (40-150); Anion Gap 10 mmol/L (10-20); BUN (Urea Nitrogen) 10 mg/dL (7.0-18.7); Bilirubin, Total 0.5 mg/dL (0.2-1.2); Calc. Creatinine Clearance 0 mL/min (70-130); Calcium 8.6 mg/dL (7.8-10.44); Carbon Dioxide 26 mmol/L (22-29); Chloride 99 mmol/L (98-107); Estimated GFR-MDRD 84; Globulin 3.6 g/dL (2.4-3.5); Glucose 246 mg/dL (70-105); Lipase 18 U/L (8-78); Potassium 4.1 mmol/L (3.5-5.1); Protein, Total 7.5 g/dL (6.0-8.3); Sodium 131 mmol/L (136-145)
[2019-03-28] MEDS ORDERED: Morphine 4 MG/ML VIAL ONE (22:43)
[2019-03-28] MEDS ORDERED: Ondansetron PF 4 MG/2 ML Vial ONE (22:43)
[2019-03-28 23:55] LABS: Bilirubin Negative (Negative); Blood, Urine Negative (Negative); Clarity Clear (Clear); Glucose, Urine (Dipstick) Greater than 1000 mg/dL (Negative); Leukocyte Negative Leu/uL (Negative); Nitrite Negative (Negative); Protein, Urine (Dipstick) Negative (Neg-Trace); Urobilinogen 3 mg/dL (Less than 2)
[2019-03-28 23:59] LABS: Pregnancy Test - Urine (BHCG) Negative (Negative); Pregu Control Background? CLEAR/WHITE (CLR/WHITE); Pregu Control Bar Appear? YES (CONTROL BAR); Specific Gravity 1.021 (1.002-1.036)
--- NOTE | 2019-03-29 00:23 | CT ---
CT ABDOMEN AND PELVIS WITH IV CONTRAST 03/28/2019 CLINICAL INFORMATION: Right lower quadrant pain and elevated white blood cell count. COMPARISON: 03/27/2019. Technique: Multiple contiguous axial CT images are obtained through the abdomen and pelvis with IV contrast. Cor onal reformatted images are provided. FINDINGS: Lower Chest: Minimal atelectasis left lung base appear Vessels: Abdominal aorta is normal in caliber. Abdomen: Portal vein:Patent Gallbladder: Surgically absent. Liver: within normal limits. Spleen: within normal limits. Pancreas: within normal limits. Adrenals: Right adrenal gland is surgically absent. Left adrenal gland has a normal CT appearance. Kidneys: within normal limits. Bowel: Normal caliber. Appendix: The appendix was normal in caliber on the recent study on 03/27/2019, but the appendix is no w dilated with thickened enhancing whitley. The appendix measures 1.7 cm in diameter proximally. There is adjacent periappendiceal inflammatory changes and fluid. No fluid collection or free intrape ritoneal gas is seen in this region. Peritoneum: Small amount of free fluid in the right lower quadrant. Mesentery and Retroperitoneum: No enlarged mesenteric or retroperitoneal lymph nodes. Abdominal Wall: Minimal linear stranding within the right anterolateral lower abdominal wall subcutan eous soft tissues which could be related to mild scarring. Pelvis: Reproductive Organs: There is a low-density cystic structure right adnexa likely due to small ovarian cyst measuring 2.4 cm. Uterus and left adnexal structures demonstrate a grossly normal appearance for patient's age. Tiny nabothian cyst are seen in the cervix. Pelvis within normal limits. Bladder: Mostly decompressed. Bones: S-shaped curvature of thoracolumbar spine. IMPRESSION: 1. Acute appendicitis. 2. Above findings discussed with Zoë Pate nurse practitioner in the emergency department on at 0017 hours.
[2019-03-29] MEDS ORDERED: Piperacillin/Tazobactam 4.5 GM VIAL ONE ×2 (00:32→07:04)
[2019-03-29] MEDS ORDERED: Morphine 4 MG/ML VIAL ONE (01:56)
[2019-03-29] MEDS ORDERED: Fentanyl 100 MCG/2 ML VIAL ONE (07:41)
[2019-03-29] MEDS ORDERED: Bupivacaine/Epinephrine 0.25% 30 ML VIAL ONE (07:42)
[2019-03-29] MEDS ORDERED: PACU-Morphine 4MG/ML VIAL SLOW IVP PRN (08:59)
[2019-03-29] MEDS ORDERED: Promethazine HCl 25 MG/ML VIAL SLOW IVP PRN (08:59)
[2019-03-29] MEDS ORDERED: Meperidine HCl/PF 25 MG/ML VIAL SLOW IVP PRN (08:59)
[2019-03-29] MEDS ORDERED: Ondansetron HCl/PF 4 MG/2 ML Vial IVP PRN (08:59)
[2019-03-29] MEDS ORDERED: Promethazine HCl 25 MG/ML VIAL IM PRN (08:59)
--- NOTE | 2019-03-29 09:16 | HP ---
CHIEF COMPLAINT: Abdominal pain. HISTORY OF PRESENT ILLNESS: Ms. Santana is a 38-year-old woman who presented to the emergency room with worsening right lower quadrant abdominal pain. She states that this started on . She actually came to the emergency room yesterday and imaging was normal, so she was discharged home, but her pain got worse, so she returned. She states that she has had nausea, but no vomiting, slight fevers, no chills. She has not eaten anything due to lack of appetite and nausea. She has not been able to stand up straight to walk due to the pain. She states that the pain started in the epigastric area and then radiated down and across to the right. PAST MEDICAL HISTORY: Hyperlipidemia, type 2 diabetes, morbid obesity, and adrenal mass. PAST SURGICAL HISTORY: Resection of large right adrenal tumor, which was benign, laparoscopic cholecystectomy, and orthopedic surgery on the hand and elbow. SOCIAL HISTORY: The patient does not smoke or use illicit drugs. Drinks socially, but not to excess. She has adverse drug reactions to lisinopril, which causes coughing and an allergy to Rocephin, which causes a rash. She also is allergic to shellfish. OUTPATIENT MEDICATIONS: Include: 1. Losartan 25 mg p.o. daily. 2. Januvia 25 mg p.o. daily. 3. A medication for her cholesterol. REVIEW OF SYSTEMS: Ten system review of systems is negative except per HPI. The patient has been a little short of breath, because she can't move or breathe normally because of the pain. FAMILY HISTORY: Noncontributory. PHYSICAL EXAMINATION: VITAL SIGNS: Normal. Patient is currently afebrile. GENERAL: Reveals an obese woman, in no acute distress. She is not flushed or toxic in appearance. She is not jaundiced or icteric. HEENT: Unremarkable. NECK: Supple without lymphadenopathy or thyroid nodules. HEART: Regular in its rate and rhythm without murmurs, rubs, or gallops. LUNGS: Clear to auscultation bilaterally. ABDOMEN: Soft and nondistended. She is nontender to palpation in the left abdomen, moderately tender to palpation in the right upper quadrant, very tender to palpation in the right lower quadrant. She does not exhibit rigidity, rebound or guarding. She does not have any palpable masses or hernias. She has a healed right subcostal incision from her adrenal resection and healed laparoscopic incisions from her laparoscopic cholecystectomy 6 months later. EXTREMITIES: Warm and well perfused without edema. NEUROLOGIC: No focal deficits. PSYCHIATRIC: Alert, oriented and appropriate. LABORATORY DATA: White count is elevated 16, hematocrit 39, platelets 244. Electrolytes are unremarkable except for a slightly low sodium of 131 and an elevated glucose of 246. Urine has greater than a 1000 glucose and a test is negative. IMAGING: CT images are reviewed and I agree with the written report. The patient has an enlarged inflamed appearing appendix with periappendiceal stranding and an incidentally noted right ovarian cysts. ASSESSMENT: Acute appendicitis. PLAN: Laparoscopic appendectomy. Antibiotics have been started in the emergency room and she has been posted for the operating room. Her diagnosis and recommended treatment were discussed with her and risks of the surgery were also discussed. These include, but are not limited to, bleeding, infection, risks of anesthesia, damage to nearby structures including bowel, blood vessels and bladder, need for open surgery or other procedures. She understands and accepts these risks and wishes to proceed. All of her questions were answered. Job ID: [id number]
[2019-03-29] MEDS ORDERED: SUGAMMADEX SODIUM 200 MG/2 ML VIAL ONE (09:39)
[2019-03-29] MEDS ORDERED: Promethazine HCl 25 MG/ML VIAL ONE (10:27)
[2019-03-29] MEDS ORDERED: traMADol HCl 50 MG TAB ONE (12:08)
[2019-03-29] MEDS ORDERED: Ondansetron PF 4 MG/2 ML Vial ONE (15:21)
[2019-03-29] MEDS ORDERED: Rocuronium Bromide 10 MG/ML (10ML VIAL) ONE (15:21)
[2019-03-29] MEDS ORDERED: Ketorolac Tromethamine 30 MG/ML VIAL ONE (15:21)
[2019-03-29] MEDS ORDERED: Dexamethasone 20 MG/5 ML VIAL ONE (15:21)
[2019-03-29] MEDS ORDERED: PROPOFOL 200 MG/20 ML VIAL ONE (15:21)
[2019-03-29] MEDS ORDERED: Lidocaine 1% PF 5 ML VIAL ONE (15:21)
[2019-03-29] MEDS ORDERED: Glycopyrrolate 0.2 MG/ML 5 ML SYRINGE ONE (15:21)
[2019-03-29] MEDS ORDERED: Succinylcholine Chloride 20 MG/ML 10 ml SYRINGE FS ONE (15:21)
--- NOTE | 2019-04-03 18:07 | PDOC.OP ---
Operative Note - Operative Note Operative Note: PROCEDURE: Laparoscopic appendectomy. SURGEON: Parvin Garcia M.D. DATE OF PROCEDURE: 03/29/2019 PREOPERATIVE DIAGNOSIS: Appendicitis. POSTOPERATIVE DIAGNOSIS: Appendicitis. HISTORY: 38-year-old woman who presented with signs and symptoms concerning for appendicitis. CT scan showed evidence of acute appendicitis. She has a past surgical history of open resection of a large adrenal mass, but was able to subsequently undergo laparoscopic cholecystectomy, despite adhesions in the right upper quadrant. Recommendation was made to proceed with laparoscopic appendectomy. DESCRIPTION OF PROCEDURE: After informed consent was obtained and appropriate antibiotics continued, the patient was taken to the operating room and placed in the supine position and general endotracheal anesthesia was administered. The bladder was decompressed with a Borrego catheter and the abdomen was prepped and draped in the standard sterile fashion. Local anesthesia was infused to the skin and subcutaneous tissues superior to the umbilicus. A transverse skin incision was made and a Veress needle placed into the abdominal cavity and carbon dioxide gas insufflated without difficulty. Opening pressure was less than 5. Carbon dioxide gas was insufflated to an intra-abdominal pressure 15 and the patient tolerated this well. The Veress needle was withdrawn and a [place] port advanced under direct laparoscopic vision into the abdominal cavity. Two additional ports were placed in the suprapubic and left lateral abdomen under direct laparoscopic vision after local anesthesia was infused at these sites. There were a few omental adhesions to the midline just above the trocar site but no bowel adhesions in the areas of any of the port placements. The omental adhesions the upper midline were taken down using LigaSure due to risk of internal herniation. The patient had copious omental adhesions across the upper abdomen on the right side which were not taken down. The appendix was identified and appearedinflamed but not perforated. The appendix was grasped by the mesoappendix and elevated. The mesoappendix was then sequentially ligated and divided down to the base of the appendix, which was normal in appearance and was clearly seen to be at the confluence of the tenia. Two Endoloops were placed around the base of the appendix and the appendix was divided between these Endoloops, placed into an EndoCatch bag and drawn out through the suprapubic incision. The suprapubic trocar was then replaced and the operative site was easily irrigated to clear. The suprapubic trocar was removed and the fascia closed under direct laparoscopic vision with a 0 Vicryl suture on a GraNee needle with excellent technical result. The left lateral trocar was then removed and hemostasis verified. Carbon dioxide gas was desufflated through the umbilical trocar which was then removed. The skin incisions were irrigated and additional local anesthesia infused at each site. The skin was closed with 4-0 subcuticular Monocryl sutures and Dermabond dressings were placed. The patient was extubated and taken to the recovery room in good condition. Estimated blood loss was minimal. There were no complications. SPECIMEN: Appendix.
== END 2019-03-29 12:55 | disposition home or self-care (01) ==
LOC: ERS 20:31 → SDC/OP 03-29 06:52
PROVIDERS: ATTEND Surgery
PROC: 0DTJ4ZZ Resection of Appendix, Percutaneous Endoscopic Approach (ICD-10-PCS; principal; 2019-03-29)
DX: K35.80 Unspecified acute appendicitis (principal); I10 Essential (primary) hypertension; E11.9 Type 2 diabetes mellitus without complications; E78.00 Pure hypercholesterolemia, unspecified; E78.5 Hyperlipidemia, unspecified; E66.01 Morbid (severe) obesity due to excess calories; Z79.84 Long term (current) use of oral hypoglycemic drugs; Z79.899 Other long term (current) drug therapy; Z88.1 Allergy status to other antibiotic agents; Z88.8 Allergy status to other drugs, medicaments and biological substances; Z91.013 Allergy to seafood
CPT/HCPCS: 36415; 74177; 80053; 81003; 81025; 83690; 85025; 88304; 93005; 96361; 96365; 96375; 96376; J0131; J1100; J1885; J2001; J2270; J2405; J2543; J2550; J2704; J3010; Q9967

== ENCOUNTER 2021-07-05 10:54 | Emergency (ER) | payer OTHER, BC ==
[2021-07-05] MEDS ORDERED: Ketorolac Tromethamine 30 MG/ML VIAL ONE (12:17)
[2021-07-05] MEDS ORDERED: cloNIDine 0.1 MG TAB ONE (13:17)
== END 2021-07-05 13:43 | disposition home or self-care (01) ==
LOC: ERS 10:54
DX: S20.211A Contusion of right front wall of thorax, initial encounter (principal); S80.01XA Contusion of right knee, initial encounter; S80.02XA Contusion of left knee, initial encounter; I10 Essential (primary) hypertension; V43.94XA Unspecified car occupant injured in collision with van in traffic accident, initial encounter; E11.9 Type 2 diabetes mellitus without complications; E78.5 Hyperlipidemia, unspecified; E78.00 Pure hypercholesterolemia, unspecified; Z79.84 Long term (current) use of oral hypoglycemic drugs
CPT/HCPCS: 96372; J1885

== ENCOUNTER 2022-09-07 01:52 | Observation (INO) | payer BC ==
[2022-09-07] MEDS ORDERED: Morphine 4 MG/ML VIAL ONE ×2 (02:02)
[2022-09-07] MEDS ORDERED: Ondansetron PF 4 MG/2 ML Vial ONE (02:02)
[2022-09-07 02:49] LABS: #Eosinphils 0.3 thou/uL (0.0-0.7); #Lymphocytes 3.8 thou/uL (1.20-3.40); #Monocytes 0.8 thou/uL (0.11-0.59); #Neutrophils 9.1 thou/uL (1.40-6.50); %Basophils 0.1 % (0.0-1.0); %Eosinophils 1.9 % (0.0-10.0); %Lymphocytes 27.1 % (21.0-51.0); %Monocytes 5.9 % (0.0-10.0); Hemoglobin 13.8 g/dL (12.0-16.0); Mean Corpuscular HGB CONC 33.3 g/dL (32.0-36.0); Mean Corpuscular Hemoglobin 26.2 pg (27.0-31.0); Mean Corpuscular Volume 78.4 fl (78.0-98.0); Mean Platelet Volume 10.3 fL (7.4-10.4); Platelet Count 272 10x3/uL (130-400); RBC Distribution Width 15.4 % (11.5-14.5); Red Blood Cell (RBC) Count 5.27 mill/uL (4.20-5.40)
[2022-09-07 02:58] LABS: BHCG - Serum Negative (NEGATIVE); Pregs Control Background? CLEAR/WHITE (CLR/WHITE); Pregs Control Bar Appear? YES (CONTROL BAR)
[2022-09-07 03:06] LABS: Actual Bicarbonate (HCO3v) 21 mEq/L (22-28); Base Excess -6.3 mEq/L (-2.0 to +3.0); Calcium, Ionized (venous) 1.15 mmol/L (1.16-1.32); Chloride (VBG) 102 mmol/L (98-106); Hemoglobin (Hb) 14.6 g/dL (11.7-15.5); Potassium (VBG) 3.64 mmol/L (3.70-5.30); Sodium 138.3 mmol/L (133-146); pH (venous) 7.25 (7.32-7.43)
[2022-09-07 03:08] LABS: ALT (SGPT) 31 U/L (8-55); AST (SGOT) 20 U/L (5-34); Albumin 4.2 g/dL (3.5-5.0); Alkaline Phosphatase 85 U/L (40-110); Anion Gap 17 mmol/L (10-20); BUN (Urea Nitrogen) 24 mg/dL (7.0-18.7); Bilirubin, Total 0.5 mg/dL (0.2-1.2); Calc. Creatinine Clearance 0 mL/min (70-130); Calcium 9.1 mg/dL (7.8-10.44); Carbon Dioxide 20 mmol/L (22-29); Chloride 103 mmol/L (98-107); Estimated GFR 62; Globulin 4.5 g/dL (2.4-3.5); Glucose 180 mg/dL (70-105); Lipase 65 U/L (8-78); Potassium 3.5 mmol/L (3.5-5.1); Protein, Total 8.7 g/dL (6.0-8.3); Sodium 136 mmol/L (136-145)
[2022-09-07] MEDS ORDERED: Promethazine HCl 25 MG in Sodium Chloride 0.9% 50 ML IVPB SCH (04:00)
[2022-09-07 05:11] LABS: Bacteria/HPF 4+ HPF (None Seen); Bilirubin Negative (Negative); Blood, Urine 3+ (Negative); Clarity Clear (Clear); Glucose, Urine (Dipstick) Normal (Negative); Ketone, Urine Negative (Negative); Leukocyte 25 Leu/uL (Negative); Nitrite Negative (Negative); Protein, Urine (Dipstick) Negative (Neg-Trace); RBC/HPF Greater than 50 HPF (0-3); Specific Gravity, Urine 1.046 (1.002-1.036); Squamous Epithelial None Seen HPF (0-3); Urobilinogen Normal mg/dL (Less than 2); WBC/HPF Greater than 50 HPF (0-3)
[2022-09-07] MEDS ORDERED: Electrolyte Replacement Protocol 1 EACH FS SCH (05:45)
[2022-09-07] MEDS ORDERED: Ondansetron ODT 4 MG TAB PO PRN (05:59)
[2022-09-07] MEDS ORDERED: Acetaminophen 325 MG TAB PO PRN (05:59)
[2022-09-07] MEDS ORDERED: Ondansetron PF 4 MG/2 ML Vial IVP PRN (05:59)
[2022-09-07] MEDS ORDERED: Sodium Chloride 0.9% 1,000 ML IV SCH ×2 (06:00→06:45)
[2022-09-07] MEDS ORDERED: HumaLOG 300 UNITS/3 ML VIAL SC PRN ×2 (06:02)
[2022-09-07] MEDS ORDERED: Dextrose 50% Abboject 50 ML SYRINGE SLOW IVP PRN (06:02)
[2022-09-07] MEDS ORDERED: Dextrose 5% in Water 1,000 ML IV PRN (06:02)
[2022-09-07 06:10] LABS: Magnesium 1.6 mg/dL (1.6-2.6)
[2022-09-07] MEDS ORDERED: Magnesium 2 GM/50 ML(in water) 2 GM in Premix Bag 1 BAG IVPB SCH (08:00)
[2022-09-07] MEDS ORDERED: Potassium Chloride 20 MEQ TAB PO SCH (08:00)
[2022-09-07 09:20] VITALS: BMI 43.3
[2022-09-07] MEDS ORDERED: Piperacillin/Tazobactam 3.375 GM in Sodium Chloride 0.9% 100 ML IVPB SCH (12:00)
[2022-09-07] MEDS: Sodium Chloride 0.9% 1,000 ML IV SCH ×2 (12:10→20:08)
[2022-09-07] MEDS: Piperacillin/Tazobactam 3.375 GM in Sodium Chloride 0.9% 100 ML IVPB SCH ×2 (16:24→23:43)
[2022-09-07] MEDS: FLUoxetine HCl 10 MG CAP PO SCH (20:05)
[2022-09-07 20:58] LABS: Campy jejuni + coli by PCR Negative (Negative); STEC Shiga Toxin 1+2 Negative (Negative); Salmonella spp. by PCR Negative (Negative); Shigella spp + EIEC by PCR Negative (Negative)
[2022-09-08] MEDS: Sodium Chloride 0.9% 1,000 ML IV SCH ×3 (04:55→20:13)
[2022-09-08 06:09] LABS: #Eosinphils 0.3 thou/uL (0.0-0.7); #Monocytes 0.5 thou/uL (0.11-0.59); #Neutrophils 3.7 thou/uL (1.40-6.50); %Basophils 0.2 % (0.0-1.0); %Lymphocytes 39.7 % (21.0-51.0); %Monocytes 6.8 % (0.0-10.0); %Neutrophils 49.4 % (42.0-75.0); Hemoglobin 10.8 g/dL (12.0-16.0); Mean Corpuscular HGB CONC 33.8 g/dL (32.0-36.0); Mean Corpuscular Hemoglobin 26.8 pg (27.0-31.0); Mean Corpuscular Volume 79.4 fl (78.0-98.0); Mean Platelet Volume 10.3 fL (7.4-10.4); Platelet Count 206 10x3/uL (130-400); RBC Distribution Width 15.3 % (11.5-14.5); Red Blood Cell (RBC) Count 4.02 mill/uL (4.20-5.40); White Blood Cell (WBC) Count 7.5 10x3/uL (4.8-10.8)
[2022-09-08 06:22] LABS: Anion Gap 9 mmol/L (10-20); BUN (Urea Nitrogen) 9 mg/dL (7.0-18.7); Calc. Creatinine Clearance 178 mL/min (70-130); Calcium 7.7 mg/dL (7.8-10.44); Carbon Dioxide 21 mmol/L (22-29); Chloride 113 mmol/L (98-107); Estimated GFR 111; Glucose 98 mg/dL (70-105); Potassium 3.6 mmol/L (3.5-5.1); Sodium 139 mmol/L (136-145)
[2022-09-08] MEDS: Piperacillin/Tazobactam 3.375 GM in Sodium Chloride 0.9% 100 ML IVPB SCH ×3 (09:16→23:16)
[2022-09-08] MEDS: FLUoxetine HCl 10 MG CAP PO SCH (20:08)
[2022-09-08] MEDS ORDERED: diphenhydrAMINE 25 MG CAP PO SCH (21:00)
[2022-09-09] MEDS: Sodium Chloride 0.9% 1,000 ML IV SCH ×2 (05:25→13:31)
[2022-09-09 07:03] LABS: Anion Gap 10 mmol/L (10-20); BUN (Urea Nitrogen) 5 mg/dL (7.0-18.7); Calc. Creatinine Clearance 183 mL/min (70-130); Calcium 7.5 mg/dL (7.8-10.44); Carbon Dioxide 22 mmol/L (22-29); Chloride 111 mmol/L (98-107); Estimated GFR 111; Glucose 91 mg/dL (70-105); Potassium 3.6 mmol/L (3.5-5.1); Sodium 139 mmol/L (136-145)
[2022-09-09] MEDS: Piperacillin/Tazobactam 3.375 GM in Sodium Chloride 0.9% 100 ML IVPB SCH (08:35)
[2022-09-09 13:20] VITALS: BP 133/88; TEMP 98.5
== END 2022-09-09 14:23 | disposition home or self-care (01) ==
LOC: ERS 01:52 → SUATTDRO 01:52 → T4-A 05:59
PROVIDERS: ADMIT Family Medicine; ATTEND Family Medicine
DX: A41.9 Sepsis, unspecified organism (principal); K52.9 Noninfective gastroenteritis and colitis, unspecified; N30.00 Acute cystitis without hematuria; E86.0 Dehydration; N17.9 Acute kidney failure, unspecified; E11.9 Type 2 diabetes mellitus without complications; E78.5 Hyperlipidemia, unspecified; E66.01 Morbid (severe) obesity due to excess calories; Z68.41 Body mass index [BMI] 40.0-44.9, adult; Z79.4 Long term (current) use of insulin; Z79.84 Long term (current) use of oral hypoglycemic drugs; Z79.899 Other long term (current) drug therapy; Z88.1 Allergy status to other antibiotic agents; Z88.8 Allergy status to other drugs, medicaments and biological substances; Z91.013 Allergy to seafood; Z20.822 Contact with and (suspected) exposure to COVID-19
CPT/HCPCS: 36415; 36416; 71045; 74177; 80048; 80053; 81003; 81015; 82010; 82805; 83605; 83690; 83735; 83880; 84484; 84703; 85025; 87040; 87324; 87449; 87505; 96361; 96365; 96366; 96375; 96376; G0378; J2270; J2405; J2543; J2550; J3475; J3490; J7050; U0003; U0005

== ENCOUNTER 2023-03-24 09:40 | Emergency (ER) | payer BC, OTHER ==
[2023-03-24] MEDS ORDERED: Acetaminophen/Codeine 30-300mg Tablet ONE (10:03)
[2023-03-24] MEDS ORDERED: Bacitracin 1 PK ONE (10:05)
== END 2023-03-24 10:50 | disposition home or self-care (01) ==
LOC: ERS 09:40
DX: S92.354A Nondisplaced fracture of fifth metatarsal bone, right foot, initial encounter for closed fracture (principal); S80.812A Abrasion, left lower leg, initial encounter; S90.122A Contusion of left lesser toe(s) without damage to nail, initial encounter; S93.401A Sprain of unspecified ligament of right ankle, initial encounter; E78.00 Pure hypercholesterolemia, unspecified; I10 Essential (primary) hypertension; E11.9 Type 2 diabetes mellitus without complications; Z79.84 Long term (current) use of oral hypoglycemic drugs

== ENCOUNTER 2023-06-05 10:36 | Emergency (ER) | payer OTHER ==
[2023-06-05] MEDS ORDERED: Ketorolac Tromethamine 30 MG/ML VIAL ONE (11:18)
[2023-06-05] MEDS ORDERED: Dexamethasone 4 MG TAB ONE (11:20)
[2023-06-05] MEDS ORDERED: Bicillin LA 1.2 MILLION UNITS/2 ML SYRINGE ONE (11:21)
== END 2023-06-05 12:00 | disposition home or self-care (01) ==
LOC: ERS 10:36
DX: J03.90 Acute tonsillitis, unspecified (principal); E78.00 Pure hypercholesterolemia, unspecified; E11.9 Type 2 diabetes mellitus without complications; I10 Essential (primary) hypertension; Z79.84 Long term (current) use of oral hypoglycemic drugs; Z79.4 Long term (current) use of insulin
CPT/HCPCS: 96372; 99282; J0561; J1885; J8540

== ENCOUNTER 2025-03-25 16:15 | Inpatient (IN) | payer OTHER ==
[~2025-03-25 16:15] MED LIST changes: -Iopamidol 370 76% 100 ML VIAL ONE; +Iopamidol-370 76% 500 ML MDV (1 ML CHARGE) ONE
[2025-03-25 17:54] LABS: Hematocrit 30.0 % (36.0-47.0); Hemoglobin 8.4 g/dL (12.0-16.0); Mean Corpuscular Hemoglobin 17.6 pg (27.0-31.0); Mean Corpuscular Volume 62.8 fL (78.0-98.0); Platelet Count 392 10x3/uL (130-400); Red Blood Cell (RBC) Count 4.78 mill/uL (4.20-5.40); White Blood Cell (WBC) Count 7.50 10x3/uL (4.8-10.8)
[2025-03-25 17:59] LABS: #Basophils 0.03 10x3/uL (0.0-0.2); #Eosinophils 0.52 10x3/uL (0.0-0.7); #Monocytes 0.42 10x3/uL (0.11-0.59); #Neutrophils 4.19 10x3/uL (1.40-6.50); %Basophils 0.4 % (0.0-1.0); %Eosinophils 6.9 % (0.0-10.0); %Lymphocytes 30.4 % (21.0-51.0); %Monocytes 5.6 % (0.0-10.0); %Neutrophils 55.9 % (42.0-75.0)
[2025-03-25 18:15] LABS: ALT (SGPT) 9 U/L (Less than 34); AST (SGOT) 22 U/L (11-34); Albumin 3.9 g/dL (3.1-4.5); Alkaline Phosphatase 84 U/L (40-110); Anion Gap 12 mmol/L (10-20); BUN (Urea Nitrogen) 9 mg/dL (7.0-18.7); Bilirubin, Total 0.2 mg/dL (0.3-1.2); Calc. Creatinine Clearance 0 mL/min (70-130); Calcium 8.9 mg/dL (7.8-10.44); Carbon Dioxide 26 mmol/L (22-29); Chloride 105 mmol/L (98-107); Globulin 4.0 g/dL (2.4-3.5); Glucose 92 mg/dL (70-105); Lipase 11 U/L (8-78); Magnesium 1.6 mg/dL (1.6-2.6); Potassium 3.9 mmol/L (3.5-5.1); Sodium 139 mmol/L (136-145)
[2025-03-25 18:19] LABS: Nucleated RBC (Manual Ct) 1 % (0); Platelet Adequacy Comment Platelets Normal; Polychromasia SLIGHT = 2-3 cells HPF (0-2); Smudge Cells 14.3 %; Toxic Granulation SLIGHT
[2025-03-25 19:29] LABS: Bacteria/HPF None Seen HPF (None Seen); CAUTI Indications for Culture Alt mental st,lethar; Glucose, Urine (Dipstick) Normal (Negative); Leukocyte Negative Leu/uL (Negative); Protein, Urine (Dipstick) Negative (Neg-Trace); RBC/HPF None Seen HPF (0-3); Specific Gravity, Urine 1.011 (1.002-1.036); Urine Culture Reflex No No; WBC/HPF 0-3 HPF (0-3)
[2025-03-25 19:31] LABS: Pregnancy Test - Urine (BHCG) Negative (Negative); Pregu Control Background? CLEAR/WHITE (CLR/WHITE); Pregu Control Bar Appear? YES (CONTROL BAR)
[2025-03-25] MEDS ORDERED: Pantoprazole 40 MG VIAL ONE (21:26)
[2025-03-25] MEDS ORDERED: Dextrose 50% Abboject 50 ML SYRINGE SLOW IVP PRN (21:39)
[2025-03-25] MEDS ORDERED: Glucagon 1 MG/ML KIT IM PRN (21:39)
[2025-03-25] MEDS ORDERED: Acetaminophen 325 MG TAB PO PRN (22:26)
[2025-03-25] MEDS ORDERED: Calcium Carbonate 500 MG ChewTAB PO PRN (22:26)
[2025-03-25 22:27] VITALS: BMI 35.8
[2025-03-25] MEDS ORDERED: Electrolyte Replacement Protocol 1 EACH FS PRN (22:30)
[2025-03-25] MEDS: HYDROcodone/Acetaminophen 10/325 mg Tablet PO PRN (22:49)
[2025-03-25] MEDS: Ondansetron PF 4 MG/2 ML Vial IVP PRN (22:50)
[2025-03-25 23:07] LABS: Hematocrit 29.1 % (36.0-47.0); Hemoglobin 8.1 g/dL (12.0-16.0)
[2025-03-25 23:25] LABS: Iron 15 ug/dL (50-170); Iron Binding Capacity, Total 423 mcg/dL (265-497)
[2025-03-26] MEDS: Sodium Ferric Gluconate 250 MG in Sodium Chloride 0.9% 250 ML 250 ML IVPB SCH ×2 (00:23→18:08)
[2025-03-26 01:46] LABS: Hematocrit 27.3 % (36.0-47.0); Hemoglobin 7.7 g/dL (12.0-16.0)
[2025-03-26] MEDS ORDERED: QUEtiapine 25 MG TAB PO SCH (02:15)
[2025-03-26] MEDS: QUEtiapine 25 MG TAB PO SCH (02:42)
[2025-03-26] MEDS: HYDROcodone/Acetaminophen 5/325 mg Tablet PO PRN (02:45)
[2025-03-26 05:47] LABS: Hematocrit 27.8 % (36.0-47.0); Hemoglobin 7.7 g/dL (12.0-16.0)
[2025-03-26 06:09] LABS: #Basophils 0.03 10x3/uL (0.0-0.2); #Eosinophils 0.39 10x3/uL (0.0-0.7); #Monocytes 0.40 10x3/uL (0.11-0.59); #Neutrophils 2.81 10x3/uL (1.40-6.50); %Basophils 0.5 % (0.0-1.0); %Eosinophils 6.5 % (0.0-10.0); %Lymphocytes 38.6 % (21.0-51.0); %Monocytes 6.7 % (0.0-10.0); %Neutrophils 46.9 % (42.0-75.0); Hematocrit 27.8 % (36.0-47.0); Hemoglobin 7.8 g/dL (12.0-16.0); Mean Corpuscular Hemoglobin 17.8 pg (27.0-31.0); Mean Corpuscular Volume 63.3 fL (78.0-98.0); Platelet Count 338 10x3/uL (130-400); Red Blood Cell (RBC) Count 4.39 mill/uL (4.20-5.40); White Blood Cell (WBC) Count 5.99 10x3/uL (4.8-10.8)
[2025-03-26 06:11] LABS: ALT (SGPT) 9 U/L (Less than 34); AST (SGOT) 25 U/L (11-34); Albumin 3.2 g/dL (3.1-4.5); Alkaline Phosphatase 69 U/L (40-110); Anion Gap 13 mmol/L (10-20); BUN (Urea Nitrogen) 9 mg/dL (7.0-18.7); Bilirubin, Total 0.2 mg/dL (0.3-1.2); Calc. Creatinine Clearance 157 mL/min (70-130); Calcium 8.4 mg/dL (7.8-10.44); Carbon Dioxide 25 mmol/L (22-29); Chloride 104 mmol/L (98-107); Globulin 3.7 g/dL (2.4-3.5); Glucose 91 mg/dL (70-105); Potassium 3.8 mmol/L (3.5-5.1); Sodium 138 mmol/L (136-145)
[2025-03-26] MEDS: Pantoprazole 40 MG VIAL IVP SCH (09:47)
[2025-03-26] MEDS: Melatonin 3 MG TAB PO PRN (20:58)
[2025-03-27 05:05] LABS: Hematocrit 28.7 % (36.0-47.0); Hemoglobin 8.0 g/dL (12.0-16.0)
[2025-03-27] MEDS ORDERED: Famotidine/PF 20 mg/2ml Vial ONE (09:57)
[2025-03-27] MEDS ORDERED: PROPOFOL 20 ML ONE (10:04)
[2025-03-27] MEDS ORDERED: SUCCINYLCHOLINE/SOD CL,ISO/PF 200 MG/10 ML SYRINGE FS ONE (10:06)
[2025-03-27] MEDS ORDERED: Ondansetron PF 4 MG/2 ML Vial ONE (10:31)
[2025-03-27] MEDS: GoLYTELY 4,000 ml Bottle PO SCH (17:17)
[2025-03-27] MEDS: Cyclobenzaprine 10 MG TAB PO PRN (21:19)
[2025-03-27] MEDS: Pantoprazole 40 MG DR.TAB PO SCH (21:20)
[2025-03-28 05:29] LABS: #Basophils 0.03 10x3/uL (0.0-0.2); #Eosinophils 0.28 10x3/uL (0.0-0.7); #Monocytes 0.46 10x3/uL (0.11-0.59); #Neutrophils 3.58 10x3/uL (1.40-6.50); %Basophils 0.4 % (0.0-1.0); %Eosinophils 4.1 % (0.0-10.0); %Lymphocytes 36.0 % (21.0-51.0); %Monocytes 6.7 % (0.0-10.0); %Neutrophils 52.1 % (42.0-75.0); Hematocrit 26.5 % (36.0-47.0); Hemoglobin 7.3 g/dL (12.0-16.0); Mean Corpuscular Hemoglobin 17.6 pg (27.0-31.0); Mean Corpuscular Volume 63.9 fL (78.0-98.0); Platelet Count 318 10x3/uL (130-400); Red Blood Cell (RBC) Count 4.15 mill/uL (4.20-5.40); White Blood Cell (WBC) Count 6.88 10x3/uL (4.8-10.8)
[2025-03-28 05:52] LABS: Anion Gap 11 mmol/L (10-20); BUN (Urea Nitrogen) 5 mg/dL (7.0-18.7); Calc. Creatinine Clearance 163 mL/min (70-130); Calcium 8.1 mg/dL (7.8-10.44); Carbon Dioxide 26 mmol/L (22-29); Chloride 108 mmol/L (98-107); Glucose 84 mg/dL (70-105); Magnesium 1.6 mg/dL (1.6-2.6); Potassium 3.6 mmol/L (3.5-5.1); Sodium 141 mmol/L (136-145)
[2025-03-28] MEDS ORDERED: Lidocaine 1% PF 5 ML VIAL ONE (09:06)
[2025-03-28] MEDS ORDERED: PROPOFOL 20 ML ONE ×3 (09:06→09:35)
[2025-03-28] MEDS: Magnesium 2 GM/50 ML(in water) 2 GM in Premix 1 BAG IVPB SCH (11:03)
[2025-03-28 15:00] VITALS: TEMP 97.6
[2025-03-28 15:02] VITALS: BP 139/88
== END 2025-03-28 14:25 | disposition home or self-care (01) | DRG 760 ==
LOC: ERS 16:15 → SURG A 21:43 → OBSVTOIN 03-26 09:05
PROVIDERS: ADMIT Student in an Organized Health Care Education/Training Program; ATTEND Student in an Organized Health Care Education/Training Program
PROC: 0DB78ZX Excision of Stomach, Pylorus, Via Natural or Artificial Opening Endoscopic, Diagnostic (ICD-10-PCS; 2025-03-26)
PROC: 0DJD8ZZ Inspection of Lower Intestinal Tract, Via Natural or Artificial Opening Endoscopic (ICD-10-PCS; principal; 2025-03-28)
DX: N92.0 Excessive and frequent menstruation with regular cycle (principal); K22.11 Ulcer of esophagus with bleeding; K25.4 Chronic or unspecified gastric ulcer with hemorrhage; D50.9 Iron deficiency anemia, unspecified; K64.8 Other hemorrhoids; E11.9 Type 2 diabetes mellitus without complications; E66.01 Morbid (severe) obesity due to excess calories; Z79.899 Other long term (current) drug therapy; E78.5 Hyperlipidemia, unspecified; I10 Essential (primary) hypertension; Z68.35 Body mass index [BMI] 35.0-35.9, adult
CPT/HCPCS: 36415; 36416; 71045; 71275; 74177; 80048; 80053; 81001; 81025; 82728; 83540; 83550; 83605; 83690; 83735; 84145; 85014; 85018; 85025; 87428; 88305; 88342; 93005; 96374; 96375; G0378; J1308; J2270; J2405; J2470; J2704; J2916; J3010; J3475; J7050; Q9967

== ENCOUNTER 2025-03-29 17:01 | Emergency (ER) | payer OTHER ==
[2025-03-29 19:39] LABS: #Basophils 0.04 10x3/uL (0.0-0.2); #Eosinophils 0.32 10x3/uL (0.0-0.7); #Monocytes 0.81 10x3/uL (0.11-0.59); #Neutrophils 14.38 10x3/uL (1.40-6.50); %Basophils 0.2 % (0.0-1.0); %Eosinophils 1.8 % (0.0-10.0); %Lymphocytes 11.8 % (21.0-51.0); %Monocytes 4.6 % (0.0-10.0); %Neutrophils 80.9 % (42.0-75.0); Hematocrit 31.8 % (36.0-47.0); Hemoglobin 8.7 g/dL (12.0-16.0); Mean Corpuscular Hemoglobin 17.9 pg (27.0-31.0); Mean Corpuscular Volume 65.3 fL (78.0-98.0); Platelet Count 319 10x3/uL (130-400); Red Blood Cell (RBC) Count 4.87 mill/uL (4.20-5.40); White Blood Cell (WBC) Count 17.77 10x3/uL (4.8-10.8)
[2025-03-29 19:50] LABS: BHCG - Serum Negative (NEGATIVE); Pregs Control Background? CLEAR/WHITE (CLR/WHITE); Pregs Control Bar Appear? YES (CONTROL BAR)
[2025-03-29] MEDS ORDERED: Ondansetron PF 4 MG/2 ML Vial ONE (19:57)
[2025-03-29] MEDS ORDERED: Ketorolac Tromethamine 30 MG (1 mL) VIAL ONE (19:57)
[2025-03-29 20:03] LABS: ALT (SGPT) 7 U/L (Less than 34); AST (SGOT) 16 U/L (11-34); Albumin 3.8 g/dL (3.1-4.5); Alkaline Phosphatase 81 U/L (40-110); Anion Gap 12 mmol/L (10-20); BUN (Urea Nitrogen) 9 mg/dL (7.0-18.7); Bilirubin, Total 0.3 mg/dL (0.3-1.2); Calc. Creatinine Clearance 0 mL/min (70-130); Calcium 8.8 mg/dL (7.8-10.44); Carbon Dioxide 23 mmol/L (22-29); Chloride 106 mmol/L (98-107); Globulin 3.8 g/dL (2.4-3.5); Glucose 101 mg/dL (70-105); Potassium 3.9 mmol/L (3.5-5.1); Sodium 137 mmol/L (136-145)
== END 2025-03-30 02:14 | disposition short-term general hospital (02) ==
LOC: ERS 17:01
DX: J36 Peritonsillar abscess (principal); I10 Essential (primary) hypertension; E11.9 Type 2 diabetes mellitus without complications; E66.9 Obesity, unspecified; Z68.35 Body mass index [BMI] 35.0-35.9, adult
CPT/HCPCS: 36415; 70491; 71045; 80053; 83605; 84703; 85025; 87040; 96374; 96375; J0295; J1885; J2405; J3010; Q9967

== ENCOUNTER 2025-04-13 14:02 | Outpatient (CLI) | payer OTHER | END 2025-04-13 14:03 | disposition home or self-care (01) | LOC: BICMAMMO 14:02 | PROVIDERS: ATTEND Family Medicine | DX: Z12.31 Encounter for screening mammogram for malignant neoplasm of breast (principal) | CPT/HCPCS: 77063; 77067 ==

== ENCOUNTER 2025-04-26 14:35 | Outpatient (CLI) | payer OTHER | END 2025-04-26 14:36 | disposition home or self-care (01) | LOC: ULT 14:35 | PROVIDERS: ATTEND Family Medicine | DX: D64.9 Anemia, unspecified (principal); N93.9 Abnormal uterine and vaginal bleeding, unspecified; R93.89 Abnormal findings on diagnostic imaging of other specified body structures; N83.202 Unspecified ovarian cyst, left side; N83.201 Unspecified ovarian cyst, right side | CPT/HCPCS: 76856 ==